=== PATIENT | female | born 1980 | race Two or more races ===

== ENCOUNTER 2020-10-13 07:03 | Outpatient (REF) | payer OTHER, MEDICAID, SELFPAY | END 2020-10-13 07:04 | disposition home or self-care (01) | LOC: HO.LAB 07:03 | PROVIDERS: Visit Provider Internal Medicine | DX: Z20.828 Contact with and (suspected) exposure to other viral communicable diseases (principal) | CPT/HCPCS: C9803; U0003 ==

== ENCOUNTER 2021-02-06 13:50 | Outpatient (REF) | payer OTHER, MEDICAID, SELFPAY ==
--- NOTE | ~2021-02-06 | XR_ITS ---
EXAMINATION: XR LUMBOSACRAL SPINE CLINICAL INFORMATION: Back pain COMPARISON: None TECHNIQUE: Three views of the lumbosacral spine. FINDINGS: Bone alignment is normal. No fracture or dislocation is seen. There is disc space narrowing at L4-L5 and L5-S1. There is lower lumbar spine facet arthritis. XR/XR lumbar spine 2-3V IMPRESSION: Lower lumbar spine degenerative disc disease and facet arthritis.
== END 2021-02-06 13:51 | disposition home or self-care (01) ==
LOC: HO.XRAY 13:50
PROVIDERS: PCP Internal Medicine; Visit Provider Internal Medicine
DX: M54.9 Dorsalgia, unspecified (principal)
CPT/HCPCS: 72100

== ENCOUNTER → 2021-04-03 12:44 | Outpatient (BNVA) | payer OTHER, MEDICAID, SELFPAY | PROVIDERS: PCP Internal Medicine; Visit Provider Surgery | DX: Z01.818 Encounter for other preprocedural examination (principal); R06.02 Shortness of breath; E66.9 Obesity, unspecified; E66.01 Morbid (severe) obesity due to excess calories; K91.2 Postsurgical malabsorption, not elsewhere classified; Z90.3 Acquired absence of stomach [part of] ==

== ENCOUNTER 2021-04-06 06:58 | Outpatient (REF) | payer OTHER, MEDICAID, SELFPAY ==
--- NOTE | ~2021-04-06 | XR_ITS ---
EXAMINATION: XR CHEST 2 VIEWS CLINICAL INFORMATION: Shortness of breath. COMPARISON: Chest radiographs dated 09/01/2008. TECHNIQUE: Frontal and lateral views of the chest were obtained. FINDINGS: The heart, great vessels, pulmonary vasculature and mediastinum are normal. The lungs show no focal infiltrate, effusion or pneumothorax. There is no acute osseous abnormality. There are right upper quadrant surgical clips. XR/XR chest 2V IMPRESSION: No active cardiopulmonary disease.
--- NOTE | 2021-04-06 07:35 | ECG_ITS ---
Test Reason : R06.02 Blood Pressure : / mmHG Vent. Rate : 073 BPM Atrial Rate : 073 BPM P-R Int : 168 ms QRS Dur : 094 ms QT Int : 402 ms P-R-T Axes : 047 011 029 degrees QTc Int : 442 ms Normal sinus rhythm Normal ECG No previous ECGs available Referred By: Callie Ritchie Electronically Signed By:CIARA BUCKLEY
[2021-04-06 07:42] LABS: MANUAL DIFF FLAG NO
[2021-04-06 07:48] LABS: Basophils Percent Auto 0.5 % (0-2); Eosinophils Absolute Auto 0.4 X10*3/uL (0.0-0.4); Eosinophils Percent Auto 5.4 % (0-4); Hematocrit 36.9 % (37-47); Hemoglobin 12.4 g/dl (12.0-16.0); Imm Gran Abs Auto 0.03 X10*3/uL (0.00-0.03); Imm Gran Pct Auto 0.4 % (0.0-0.4); Lymphocytes Absolute Auto 1.9 X10*3/uL (1.2-4.9); Lymphocytes Percent Auto 23.6 % (20-40); Mean Corpuscular HGB Conc 33.6 g/dl (31.0-35.0); Mean Corpuscular Hemoglobin 27.6 pg (27.0-33.0); Mean Platelet Volume 10.4 fL (9.4-12.3); Monocytes Absolute Auto 0.5 X10*3/uL (0.1-1.2); Monocytes Percent Auto 6.3 % (2-11); Neutrophils Absolute Auto 5.1 X10*3/uL (2.0-8.3); Neutrophils Percent Auto 63.8 % (45-73); Platelet Count 255 X10*3/uL (160-400); Red Cell Distribution Width 12.7 % (11.0-16.0)
[2021-04-06 07:53] LABS: Estimated Average Glucose 105 mg/dL; Hemoglobin A1c % 5.3 %
[2021-04-06 08:05] LABS: Alanine Aminotransferase 24 U/L (0-31); Albumin Level 4.3 g/dL (3.5-5.0); Alkaline Phosphatase 70 U/L (39-117); Anion Gap 14 (12-20); Aspartate Amino Transferase 16 U/L (5-31); Bilirubin Total 0.4 mg/dL (0.0-1.0); Blood Urea Nitrogen 20 mg/dL (9-16); C Reactive Protein 1.37 mg/dL (< or = 0.50); Calcium 9.3 mg/dL (8.4-10.2); Carbon Dioxide 25 mmol/L (22-29); Chloride 104 mmol/L (96-108); Cholesterol 169 mg/dL; Estimated Glomerular Filt Rate > 60; Glucose Fasting 107 mg/dL (60-99); HDL Cholesterol 38 mg/dL; Iron 50 mcg/dL (30-160); LDL Cholesterol Calculated 110 mg/dl; Percent Iron Saturation 17 % (15-50); Potassium 4.2 mmol/L (3.3-5.1); Sodium 139 mmol/L (135-145); Total Iron Binding Capacity 301 mcg/dL (228-428); Total Protein 7.1 g/dL (6.5-8.0); Triglycerides 109 mg/dL; Unsaturated Iron Binding 251 ug/dL
[2021-04-06 08:30] LABS: Thyroid Stimulating Hormone 0.71 uIU/mL (0.32-4.0); Vitamin D 25-OH Total 73.8 ng/mL (>30)
[2021-04-06 09:36] LABS: Vitamin B12 503 pg/mL (200-900)
[2021-04-07 14:17] LABS: H Pylori Breath Test NOT DETECTED (NOT DETECTED)
[2021-04-10 13:33] LABS: Calcium (PTHI) 9.4 mg/dL (8.6-10.2); PTHI 27 pg/mL (14-64)
[2021-04-10 20:47] LABS: Zinc 70 mcg/dL (60-130)
[2021-04-11 16:07] LABS: Vitamin B1 20 nmol/L (8-30)
[2021-04-11 16:31] LABS: Vitamin A 43 mcg/dL (38-98)
== END 2021-04-06 06:59 | disposition home or self-care (01) ==
LOC: HO.LAB 06:58
PROVIDERS: PCP Internal Medicine; Visit Provider Surgery
DX: Z01.818 Encounter for other preprocedural examination (principal); R06.02 Shortness of breath; K91.2 Postsurgical malabsorption, not elsewhere classified; Z90.3 Acquired absence of stomach [part of]
CPT/HCPCS: 36415; 71046; 80053; 80061; 82306; 82607; 83013; 83036; 83540; 83970; 84425; 84443; 84590; 84630; 85025; 86140; 93005

== ENCOUNTER → 2021-04-20 08:19 | Outpatient (BNVA) | payer OTHER, MEDICAID, SELFPAY | PROVIDERS: PCP Internal Medicine; Visit Provider Physician Assistant ==

== ENCOUNTER → 2021-05-18 15:34 | Outpatient (BNVA) | payer OTHER, MEDICAID, SELFPAY | PROVIDERS: PCP Internal Medicine; Referring Provider Internal Medicine; Visit Provider Surgery ==

== ENCOUNTER → 2021-06-15 12:35 | Outpatient (BNVA) | payer OTHER, MEDICAID, SELFPAY | PROVIDERS: PCP Internal Medicine; Visit Provider Surgery ==

== ENCOUNTER → 2021-06-29 08:24 | Outpatient (BNVA) | payer OTHER, MEDICAID, SELFPAY | PROVIDERS: PCP Internal Medicine; Visit Provider Dietitian, Registered | DX: E66.01 Morbid (severe) obesity due to excess calories (principal); Z71.3 Dietary counseling and surveillance | CPT/HCPCS: 97802 ==

== ENCOUNTER → 2021-07-06 07:56 | Outpatient (BNVA) | payer OTHER, MEDICAID, SELFPAY | PROVIDERS: PCP Internal Medicine; Visit Provider Physician Assistant ==

== ENCOUNTER → 2021-07-20 13:20 | Outpatient (BNVA) | payer OTHER, MEDICAID, SELFPAY | PROVIDERS: PCP Internal Medicine; Visit Provider Physician Assistant ==

== ENCOUNTER 2021-07-26 08:36 | Outpatient (REF) | payer OTHER, MEDICAID, SELFPAY ==
--- NOTE | 2021-07-26 10:22 | ECG_ITS ---
Test Reason : SOB Blood Pressure : / mmHG Vent. Rate : 059 BPM Atrial Rate : 059 BPM P-R Int : 176 ms QRS Dur : 094 ms QT Int : 434 ms P-R-T Axes : 046 016 027 degrees QTc Int : 429 ms Sinus bradycardia with sinus arrhythmia Otherwise normal ECG When compared with ECG of 06-APR-2021 07:44, No significant change was found Referred By: Callie Ritchie Electronically Signed By:SARI CLEMENTE
[2021-07-26 11:00] LABS: Alanine Aminotransferase 17 U/L (0-31); Albumin Level 4.3 g/dL (3.5-5.0); Alkaline Phosphatase 62 U/L (39-117); Anion Gap 8 (12-20); Aspartate Amino Transferase 14 U/L (5-31); Bilirubin Total 0.7 mg/dL (0.0-1.0); Blood Urea Nitrogen 14 mg/dL (9-16); Calcium 9.2 mg/dL (8.4-10.2); Carbon Dioxide 27 mmol/L (22-29); Chloride 107 mmol/L (96-108); Cholesterol 152 mg/dL; Estimated Glomerular Filt Rate > 60; Glucose Fasting 94 mg/dL (60-99); HDL Cholesterol 38 mg/dL; LDL Cholesterol Calculated 99 mg/dl; Potassium 4.1 mmol/L (3.3-5.1); Sodium 138 mmol/L (135-145); Total Protein 7.1 g/dL (6.5-8.0); Triglycerides 77 mg/dL
[2021-07-26 11:19] LABS: Thyroid Stimulating Hormone 0.62 uIU/mL (0.32-4.0)
== END 2021-07-26 08:37 | disposition home or self-care (01) ==
LOC: HO.LAB 08:36
PROVIDERS: Absent Provider Internal Medicine; PCP Internal Medicine; Visit Provider Surgery
DX: E66.01 Morbid (severe) obesity due to excess calories (principal); Z68.41 Body mass index [BMI] 40.0-44.9, adult; E11.9 Type 2 diabetes mellitus without complications; E03.9 Hypothyroidism, unspecified; R06.02 Shortness of breath
CPT/HCPCS: 36415; 80053; 80061; 84443; 93005

== ENCOUNTER 2021-08-01 06:10 | Inpatient (IN) | payer OTHER, MEDICAID, SELFPAY ==
[2021-07-24 10:55] VITALS: BMI 40.4
[2021-07-26 10:29] LABS: MANUAL DIFF FLAG NO
[2021-07-26 10:38] LABS: INTERNATIONAL NORM RATIO 1.1 (0.9-1.1); Prothrombin Time 12.6 SEC (9.9-13.0)
[2021-07-26 10:39] LABS: Basophils Percent Auto 0.5 % (0-2); Eosinophils Absolute Auto 0.1 X10*3/uL (0.0-0.4); Hematocrit 36.3 % (37-47); Imm Gran Abs Auto 0.03 X10*3/uL (0.00-0.03); Imm Gran Pct Auto 0.5 % (0.0-0.4); Lymphocytes Absolute Auto 1.9 X10*3/uL (1.2-4.9); Lymphocytes Percent Auto 28.9 % (20-40); Mean Corpuscular HGB Conc 33.1 g/dl (31.0-35.0); Mean Corpuscular Hemoglobin 27.4 pg (27.0-33.0); Mean Corpuscular Volume 82.9 fL (80-98); Mean Platelet Volume 10.2 fL (9.4-12.3); Monocytes Absolute Auto 0.4 X10*3/uL (0.1-1.2); Monocytes Percent Auto 6.7 % (2-11); Neutrophils Percent Auto 61.4 % (45-73); Platelet Count 253 X10*3/uL (160-400); Red Blood Count 4.38 X10*6/uL (4.20-5.50); Red Cell Distribution Width 12.8 % (11.0-16.0); White Blood Count 6.6 X10*3/uL (4.8-10.8)
[2021-07-26 10:41] LABS: Partial Thromboplastin Time 37.8 SEC (24.1-38.0)
[2021-07-26 10:50] LABS: Albumin Level 4.3 g/dL (3.5-5.0); Anion Gap 11 (12-20); Blood Urea Nitrogen 14 mg/dL (9-16); Calcium 9.3 mg/dL (8.4-10.2); Carbon Dioxide 27 mmol/L (22-29); Chloride 106 mmol/L (96-108); Creatinine Clr Calc Pharmacy 117.5; Estimated Glomerular Filt Rate > 60; Glucose Random 95 mg/dL (60-115); Potassium 4.3 mmol/L (3.3-5.1); Sodium 140 mmol/L (135-145)
[2021-07-26 11:01] LABS: UPreg QC Valid YES; Urine Pregnancy NEGATIVE (NEGATIVE)
[2021-07-26 11:04] LABS: Appearance Urine CLEAR; Color Urine YELLOW; Glucose Urine UA NEG (NEG); Leukocyte Esterase Urine NEG (NEG); Nitrite Urine NEG (NEG); UACC Culture Trigger NO; Urine Blood 1+ (NEG); Urine Ketones NEG (NEG); Urine Protein NEG (NEG-TRACE)
[2021-07-26 11:26] LABS: Amorphous Sediment Urine 1+ /LPF; Mucus Urine 2+ /LPF; RBC Urine 0-2 /HPF (0); Squamous Epithelial Cell Urine 2+ /LPF; WBC Urine 0-2 /HPF (0-4)
--- NOTE | 2021-07-31 08:50 | HO.ANESPROP2 ---
Documented by User: Donya Mcfadden NP 07/31/21 08:51 [facility] Active Problems Active Problems: All Active Problems (Updated 07/24/21 @ 10:55 by Nuria Dennis RN) Morbid obesity due to excess calories (Acute) BMI 40.0-44.9, adult (Acute) Physical exam (Acute) Preoperative examination (Acute) Shortness of breath (Acute) Preop exam for internal medicine (Acute) Adjustment disorder, unspecified (Acute) Past Medical History Medical History Back pain COVID-19 vaccine series completed Degenerative disc disease, lumbar History of COVID-19 Family History Family History Father No problems noted. Mother No problems noted. Sister No problems noted. Son No problems noted. Son No problems noted. Son No problems noted. Surgical History Surgical History H/O tubal ligation History of cholecystectomy History of tonsillectomy Hx of cervical polypectomy Social History Social History Housing: Apartment Are you a primary attending ambulatory care to a significant other at home: Yes (children) Do you presently have visiting nurse or other home services: No Alcohol intake: current Alcohol intake frequency: does not drink Patient Tobacco Use Status: Never used Tobacco Second Hand Smoke Exposure: No Use of substances other than those prescribed or required for medical reasons: No Have you been hit, kicked, punched, or otherwise hurt by someone within the past year? If so, by whom?: No Are you DNR?: No Advance Directives: No Advance Directives Information Provided: No Advance Directives on File: No Recently lost weight without trying: No Eating poorly because of decreased appetite: No Nutrition Risks: No Nutritional Risk Patient : No FDLMP: 07/19/21 : No Poor oral hygiene: No service: No Current occupational status: employed Meds Allergies Allergy/AdvReac Type Severity Reaction Status Date / Time Seasonal Allergies Allergy Intermediate red eye, Verified 07/26/21 08:54 itching eye, watery eyes, apple [Apple] Allergy Mild THROAT Verified 07/26/21 08:54 ITCHING stephens Allergy Mild THROAT Verified 07/26/21 08:54 ITCHING pear [Pear] Allergy Mild THROAT Verified 07/26/21 08:54 ITCHING Exam Exam Date and Time: July 31, 2021 0850 Height,Weight and Vital Signs: Height 5 ft 7 in Weight 117.027 kg Pertinent Lab Results Pertinent Lab Results: Laboratory Tests 07/26/21 07/26/21 07/26/21 10:09 10:09 10:09 WBC 6.6 RBC 4.38 Hgb 12.0 Hct 36.3 L MCV 82.9 MCH 27.4 MCHC 33.1 RDW 12.8 Plt Count 253 MPV 10.2 Immature Gran % (Auto) 0.5 H Neut % (Auto) 61.4 Lymph % (Auto) 28.9 Mcculloch % (Auto) 6.7 Eos % (Auto) 2.0 Baso % (Auto) 0.5 Lymph # (Auto) 1.9 Mcculloch # (Auto) 0.4 Eos # (Auto) 0.1 Baso # (Auto) 0.0 Abs Immat Gran (auto) 0.03 Absolute Neuts (auto) 4.0 Absolute Nucleated RBC 0.000 Nucleated RBC % (auto) 0.0 PT 12.6 INR 1.1 APTT 37.8 Sodium Potassium Chloride Carbon Dioxide Anion Gap BUN Creatinine Estim Creat Clear Calc Estimated GFR Random Glucose Calcium Albumin Urine Color YELLOW Urine Appearance CLEAR Urine pH 6.0 Ur Specific Roosevelt 1.020 Urine Protein NEG Urine Glucose (UA) NEG Urine Ketones NEG Urine Blood 1+ H Urine Nitrite NEG Ur Leukocyte Esterase NEG Urine RBC 0-2 Urine WBC 0-2 Ur Squamous Epith Cells 2+ Amorphous Sediment 1+ Urine Bacteria NONE Urine Mucus 2+ Urine Test Blood Type Antibody Screen 07/26/21 07/26/21 07/26/21 10:09 10:09 10:09 WBC RBC Hgb Hct MCV MCH MCHC RDW Plt Count MPV Immature Gran % (Auto) Neut % (Auto) Lymph % (Auto) Mcculloch % (Auto) Eos % (Auto) Baso % (Auto) Lymph # (Auto) Mcculloch # (Auto) Eos # (Auto) Baso # (Auto) Abs Immat Gran (auto) Absolute Neuts (auto) Absolute Nucleated RBC Nucleated RBC % (auto) PT INR APTT Sodium 140 Potassium 4.3 Chloride 106 Carbon Dioxide 27 Anion Gap 11 L BUN 14 Creatinine 0.85 Estim Creat Clear Calc 117.5 Estimated GFR > 60 Random Glucose 95 Calcium 9.3 Albumin 4.3 Urine Color Urine Appearance Urine pH Ur Specific Roosevelt Urine Protein Urine Glucose (UA) Urine Ketones Urine Blood Urine Nitrite Ur Leukocyte Esterase Urine RBC Urine WBC Ur Squamous Epith Cells Amorphous Sediment Urine Bacteria Urine Mucus Urine Test NEGATIVE Blood Type O Positive Antibody Screen NEGATIVE Narrative Narrative: EKG 07/2021 Vent. Rate : 059 BPM ? ? Atrial Rate : 059 BPM ?? P-R Int : 176 ms? QRS Dur : 094 ms ? ? QT Int : 434 ms ? ? ? P-R-T Axes : 046 016 027 degrees ?? QTc Int : 429 ms ? Sinus bradycardia with sinus arrhythmia Otherwise normal ECG When compared with ECG of 06-APR-2021 07:44, No significant change was found Assessment and Plan Assessment Anesthesia Assessment: Chart Reviewed Documented by User: Luis Carroll MD 08/01/21 06:59 [facility] Past Medical History Medical History Back pain COVID-19 vaccine series completed Degenerative disc disease, lumbar History of COVID-19 Family History Family History Father No problems noted. Mother No problems noted. Sister No problems noted. Son No problems noted. Son No problems noted. Son No problems noted. Family history of problems with anesthesia: No Surgical History Surgical History H/O tubal ligation History of cholecystectomy History of tonsillectomy Hx of cervical polypectomy History of Problems with Anesthesia: No Social History Social History Housing: Apartment Are you a primary attending ambulatory care to a significant other at home: Yes (children) Do you presently have visiting nurse or other home services: No Alcohol intake: current Alcohol intake frequency: does not drink Patient Tobacco Use Status: Never used Tobacco Second Hand Smoke Exposure: No Use of substances other than those prescribed or required for medical reasons: No Have you been hit, kicked, punched, or otherwise hurt by someone within the past year? If so, by whom?: No Are you DNR?: No Advance Directives: No Advance Directives Information Provided: No Advance Directives on File: No Recently lost weight without trying: No Eating poorly because of decreased appetite: No Nutrition Risks: No Nutritional Risk Patient : No FDLMP: 07/19/21 : No Poor oral hygiene: No service: No Current occupational status: employed Meds Allergies Allergy/AdvReac Type Severity Reaction Status Date / Time Seasonal Allergies Allergy Intermediate red eye, Verified 07/26/21 08:54 itching eye, watery eyes, apple [Apple] Allergy Mild THROAT Verified 07/26/21 08:54 ITCHING stephens Allergy Mild THROAT Verified 07/26/21 08:54 ITCHING pear [Pear] Allergy Mild THROAT Verified 07/26/21 08:54 ITCHING Exam Airway Mallampati Class: III TM Dist: >3cm Neck ROM: Full Loose/Missing/Broken Teeth: No Heart: [id number] Lungs: cta b/l Assessment and Plan Assessment Anesthesia Assessment: Anesthesia Plan Discussed Final Anesthetic Review Family History of Problems with Anesthesia: No History of Problems with Anesthesia: No NPO: Yes ASA Class: II Final Preanesthetic Review: No Changes in Pt Med Stat, Meds/Allgs Chart Reviewed, Consent Obtained/Reviewed and Anes Risks/Benef Reviewed Patient Risk: Intermediate Procedure Risk: Intermediate Assessment/Block/Sedation in SS: Assess/Block/Sedation-SS Anesthetic Plan Anesthetic Plan: GA and Agree w/ Assess. and Plan Disposition: Standard PACU
--- NOTE | 2021-07-31 16:32 | MHC.SHP ---
Pre-Procedural Eval Section A Date of Service: 07/31/21 Section B Chief Complaint: Morbid Severe Obesity Allergies: Allergies Allergy/AdvReac Type Severity Reaction Status Date / Time Seasonal Allergies Allergy Intermediate red eye, Verified 07/26/21 08:54 itching eye, watery eyes, apple [Apple] Allergy Mild THROAT Verified 07/26/21 08:54 ITCHING stephens Allergy Mild THROAT Verified 07/26/21 08:54 ITCHING pear [Pear] Allergy Mild THROAT Verified 07/26/21 08:54 ITCHING Plan I have reviewed the history and physical and performed a pertinent physical examination on my patient. No changes have occurred unless specified.
[2021-08-01] VITALS (14 sets, daily range): BP systolic 102–129; BP diastolic 44–63; PULSE 61–83; RESP 14–19; TEMP 36.2–36.9; O2SAT 98–100
[2021-08-01] MEDS: Lactated Ringers 1,000 ML 100 ML IVCONT ×3 (07:02→19:50)
[2021-08-01 07:13] LABS: COVID-19 Test Negative (Negative); IDNOW Serial# 9DD0AD1C
--- NOTE | 2021-08-01 08:00 | P.BOP_ITS ---
Brief Operative Note Date of Service: 08/01/21 Pre-op diagnosis: Morbid obesity, bmi 40.1 Post-op diagnosis: other (same and haital hernia) Procedure: laparoscopic sleeve gastrectomy, hiatal hernia repair, VICKIE block, and intraoperative endoscopy Surgeon: Callie Ritchie MD Anesthesia: GETA Was an Allergy And Immunology Chief used for this Procedure?: No Estimated blood loss (mL): 10 Pathology: other (partial gastrectomy) Condition: stable Disposition: PACU
--- NOTE | 2021-08-01 08:02 | P.PNGS_ITS ---
Subjective Subjective Date of Service: 08/02/21 Interval history: This is a 40-year-old lady on postoperative day 1. Status post laparoscopic sleeve gastrectomy and hiatal hernia repair doing well. Patient is tolerating stage II diet without difficulty. She denies any nausea vomiting. S he has been up and ambulating and using incentive spirometer. Vital signs and blood work are within normal range for postoperative day 1. Physical Exam Vital Signs: Vital Signs: Last Vital Signs Temp 98.3 F 08/01/21 06:30 Pulse 70 08/01/21 06:30 Resp 16 08/01/21 06:30 BP 102/44 L 08/01/21 06:30 Pulse Ox 98 08/01/21 06:30 Body Mass Index 40.4 Const: General: cooperative, comfortable and no acute distress GI: Other: Abdomen is soft nondistended mild appropriate incisional tenderness. Incisions are clean dry intact with Dermabond in place. There is no erythema or drainage or ecchymosis. Extrem: Other: Bilateral lower extremities are warm well-perfused throughout without edema or tenderness to palpation Procedures Date of Service Date of Service: 08/02/21 Progress Note: A&P Assessment and plan (1) Status post laparoscopic sleeve gastrectomy: Status: Acute Assessment and Plan: This is a 40-year-old lady on postoperative day 1. Status post laparoscopic sleeve gastrectomy and hiatal hernia repair doing well. I will advance her to a stage III diet and once she is tolerating diet she will be discharged home to follow up with me again as an outpatient in 2 weeks time frame. (2) History of repair of hiatal hernia: Status: Acute (3) Morbid obesity due to excess calories: Status: Acute (4) BMI 40.0-44.9, adult: Status: Acute Fall Risk Details Current Medications: Current Medications Acetaminophen (Acetaminophen 325 Mg Tablet) 650 mg PO ONCE PRN PRN Reason: Pain, Mild (Pain Scale 1-3) Fentanyl (Fentanyl Citrate/Pf 100 Mcg/2 Ml Vial) 50 mcg IVPUSH Q5M PRN; Protocol PRN Reason: Pain, Moderate (Pain Scale 4-6 Hydromorphone HCl (Hydromorphone Hcl 0.5 Mg/0.5 Ml Syringe) 0.5 mg IVPUSH Q5M PRN; Protocol PRN Reason: Pain, Severe (Pain Scale 7-10) Lactated Ringer's (Lr) 1,000 mls @ 100 mls/hr IVCONT .Q10H ABHI Last Admin: 08/01/21 07:02 Dose: 100 mls/hr Documented by: Promethazine HCl 6.25 mg/ (Sodium Chloride) 50.25 mls @ 201 mls/hr IV ONCE PRN PRN Reason: Nausea and Vomiting Ondansetron HCl (Ondansetron Hcl 4 Mg/2 Ml Vial) 4 mg IVPUSH ONCE PRN PRN Reason: Nausea and Vomiting Oxycodone HCl (Oxycodone Hcl Immed Release 5 Mg Tablet) 10 mg PO ONCE PRN PRN Reason: Pain, Severe (Pain Scale 7-10) Time Spent With Patient Time: Total time spent is greater than 50% in coordination of care (as documented) at patient's floor/unit and/or counseling patient: Time with patient: less than 15 minutes Quality Stroke Does the patient have a stroke diagnosis?: No VTE Prior VTE?: No VTE Risk Level:: Surgical - moderate VTE Device Contraindication: N/A - Device Ordered VTE Drug Contraindication: Treatment Not Indicated
--- NOTE | 2021-08-01 08:02 | P.OP_ITS ---
Operative Note Operative Note Date of Service: 08/01/21 Narrative: Patient was brought into the operating room and placed on the operating room table in the supine position. General anesthesia was induced. Normal DVT prophylaxis was instituted and the patient received 2 grams of cefotetan preoperatively. The abdomen was then prepped and draped in the normal sterile fashion. A safety time-out was performed. A mixture of 1% lidocaine with epinephrine and ?% Marcaine plain was used to an esthetize the planned incision site in the left upper quadrant. A #11 scalpel was used to make a 5 mm left upper quadrant transverse incision through which a veress needle was placed. Three pops were heard going through the fascia. A saline drop test was used to confirm that the veress needle was intraabdominal. An optiview technique was then used to place a 5mm port in the left upper quadrant. A 5 mm 30 degree laproscope was then placed through this port and the abdominal cavity was surveyed and was normal. The patient was placed in reverse Trendelenburg positioning. A mis liver retractor was then placed in the subxyphoid position and it was used to hold up the left lobe of the liver to the abdominal wall. This was secured to the bed using the liver retractor orozco. A VICKIE block was then performed for pain control on the right side of the abdomen. A 5 mm port was placed in the right upper quadrant near the falciform ligament. A 12 mm port was then placed in the mid epigastrium. One additional 5 mm port was placed in the left upper quadrant just to the left of the placement of the first port. I then performed a VICKIE block on the left side of the abdomen. I then removed the epigastric fat pad; there was a small anterior hiatal hernia noted. I reapproximated the left and right crura with a total of 2 stitches of 2-0 ethibond and a laparoscopic knot pusher. There was no residual hiatal hernia. I then opened up the angle of His. We then gained entry into the lesser sac about 4-5 cm from the pylorus. I had anesthesia place a 34 Romanian orogastric tube into the distal antrum to use as a sizing tool for gastric pouch size. I divided the short gastric vessels up to the angle of His. We then started the creation of the gastric pouch by firing a 60 mm purple load endostapler up the stomach about 4-5 cm from the pylorus. We completed the creation of the gastric pouch using a total of 4 firings of a 60 mm and 1 firing of a 45 mm purple load stapler. We had anesthesia remove the orogastric tube, then we clamped across the distal antrum using a fired 60 mm endostapler. We flattened the patient and then instilled normal saline surrounding the newly created staple line. I then performed an on-table endoscopy. I passed the gastroscopy into the posterior oropharynx and down the esophagus evaluating the esophageal mucosa which was normal. There was no evidence of hiatal hernia. I passed the gastroscope into the gastric pouch and insufflated the gastric pouch. There was healthy pink mucosa and no evidence of active bleeding. There was no evidence of leak on laparosco py. I desufflated the gastric pouch and removed the endoscope. I removed the endostapler from the abdomen and suctioned the fluid from the left upper quadrant. I then removed the partial gastrectomy specimen through the epigastric 12 mm port site. I reapproximated the 12 mm port using a 0 maxon suture with a laparoscopic suture passer. I instilled local anesthetic into the fascial closure site and tied the suture down at a pressure of 8-10 mm of Hg. There was no residual fascial defect. We removed the liver retractor and the left upper quadrant 5 mm ports under direct visualization. There was no evidence of any active bleeding. I desufflated the abdomen through the last remaining port and removed the laparoscope and 5 mm port. We reapproximated all incisions with a 4-0 monocryl subcuticular stitch. We cleaned and dried the abdominal skin and applied dermabond skin glue. All count were correct at the end of the case. The patient was awake and in stable condition prior to extubation and transfer to the recovery room.
--- NOTE | 2021-08-01 08:02 | PM.DS ---
DS: Providers Provider Date of Service: 08/01/21 Date of admission: 08/01/21 06:10 Date of discharge: 08/02/21 Primary care physician: Chip Barbour MD Admitting clinician: Callie Ritchie Attending physician on admission: Callie Ritchie Attending physician on discharge: Callie Ritchie Discharging clinician: Callie Ritchie DS: Diagnosis Discharge Diagnosis (1) History of repair of hiatal hernia: Status: Acute (2) Status post laparoscopic sleeve gastrectomy: Status: Acute (3) Morbid obesity due to excess calories: Status: Acute (4) BMI 40.0-44.9, adult: Status: Acute DS: Summary Hospital Course Hospital Course: This is a 40-year-old lady who was admitted through same day admissions on 08/01/2021 and underwent a laparoscopic sleeve gastrectomy and hiatal hernia repair for weight management. Patient did well postoperatively and was sent to the surgical floor overnight. She was started on a stage II bariatric diet which she tolerated well. Patient was out of bed and ambulating and using the incentive spirometer. On postoperative day 1. The patient's vital signs and blood work within normal limits for postoperative day 1. Patient was advanced to a stage III bariatric diet and she tolerated well and was discharged home. Status at Discharge Functional status at discharge: independent ambulation Time Spent with Patient Time attestation: Total time spent providing and/or coordinating discharge services: Discharge coordination time: Less than 30 minutes Quality: Stroke Does the patient have a stroke diagnosis?: No Physical Exam Vital Signs: Vital Signs: Last Vital Signs Temp 98.3 F 08/01/21 06:30 Pulse 70 08/01/21 06:30 Resp 16 08/01/21 06:30 BP 102/44 L 08/01/21 06:30 Pulse Ox 98 08/01/21 06:30 Body Mass Index 40.4 DS: Data Data Completed and Pending Labs on day of discharge: Laboratory Results - last 24 hr 08/01/21 06:12 COVID-19 ([facility]) Negative COVID-19 Clin Com See Note Discharge Plan Discharge Patient Disposition: Home, Self-Care Discharge Diagnosis: Morbid obesity, BMI 40.1, status post sleeve gastrectomy and hiatal hernia repair Referrals: Chip Barbour MD [Primary Care Provider] - 1 Week Discharge Medications: Continued acetaminophen [Tylenol Extra Strength] 500 mg tablet 1,000 mg PO Q6H PRN (Reason: pain) Qty: 30 RF: 1 famotidine [Pepcid AC] 20 mg tablet 20 mg PO DAILY Qty: 30 RF: 1 simethicone [Gas Relief (simethicone)] 80 mg tablet,chewable 80 mg PO TID-QID PRN (Reason: abdominal distention) Qty: 30 RF: 1 ondansetron HCl [Zofran] 4 mg tablet 4 mg PO Q6H PRN (Reason: nausea and vomiting) Qty: 30 RF: 1 docusate sodium [Colace] 100 mg capsule 100 mg PO BID Qty: 30 RF: 1 Discharge Orders: Discharge Order (Routine); Ordered 08/02/21 Ordered By: Callie Ritchie Activity on Discharge: No heavy lifting Stand Alone Forms: Patient Portal Discharge page Activity Restrictions/Additional Instructions: No lifting greater than 5 lbs for the next 4 weeks. No driving within 24 hours of taking narcotic pain medications. If you do not move your bowels in the next 2 days, please take milk of magnesia over the counter or MiraLax. Please follow the post op diet and do not advance your diet until you are seen in the office in about 2 weeks. Please walk around your home every hour or two to prevent blood clots from forming in your legs. You do not need to wake from sleeping to walk. Please sleep in a bed or couch to prevent kinking at the hips and knees. Please take your incentive spirometer (your lung staff development nurse) home with you and use it for the next few days to prevent pneumonias. You may shower, no hot tubs, baths or swimming pools. Please call the office with any questions or concerns such as increasing abdominal pain, fever, chills, shortness of breath, chest pain, leg pain or swelling, or redness or drainage from your incisions. Please stay on stage 3 diet which includes sugar free clear liquids such as ice pops and jello and broth and crystal light. Avoid all carbonation. Please drink 2-3 protein shakes with at least 20-30 grams of protein daily or 2 of the celebrate 4:1 shakes which can be purchased in our office in addition to 1 other protein shake of your choice. celebrate shakes have all of the bariatric vitamins you need if you consume these shakes. If you are drinking other protein shakes, you will need to order the bariatric vitamin Opurity chewable online, or use the celebrate bariatric vitamin and an additional celebrate calcium daily which will provide all the vitamins you need. You may take the bariatric capsule vitamin in about 1 month. Please make sure you are consuming at least 40- 60 ounces of water in addition to your 2-3 protein shakes daily. You do not need to use the medicine cups to drink year shakes or water following discharge. Just drink slowly in order to ensure that she consume all of your liquids for the day. The medicine cups were only to teach you to drink slowly. They are not required at home. Do not hesitate to contact the office with any questions. Care Plan Goals: Achieve BMI of 25 Health Concerns: Morbid obesity Plan of Treatment: Patient is status post sleeve gastrectomy Assessment: Patient is doing well
[2021-08-01] MEDS: ondansetron HCL 4 MG/2 ML VIAL IVPUSH (09:36)
[2021-08-01] MEDS: HYDROmorphone HCl 0.5 MG/0.5 ML SYRINGE IVPUSH ×4 (09:47→21:37)
[2021-08-01] MEDS: Metoclopramide HCl 10 MG/2 ML VIAL IVPUSH (10:11)
[2021-08-01] MEDS: Famotidine/PF 20 MG/2 ML VIAL IVPUSH ×2 (10:12→21:37)
[2021-08-01] MEDS: cefoTEtan disodium 2 GM in 0.9 % Sodium Chloride 50 ML IV (19:41)
[2021-08-02] VITALS: BP 123/58; PULSE 75; RESP 16; TEMP 36.7; O2SAT 97
[2021-08-02 04:00] VITALS: BP 123/59; PULSE 65; RESP 16; TEMP 36.7; O2SAT 98
[2021-08-02 06:05] LABS: Hematocrit 31.9 % (37-47); Hemoglobin 10.4 g/dl (12.0-16.0); Mean Corpuscular HGB Conc 32.6 g/dl (31.0-35.0); Mean Corpuscular Hemoglobin 27.5 pg (27.0-33.0); Mean Corpuscular Volume 84.4 fL (80-98); Mean Platelet Volume 10.8 fL (9.4-12.3); Platelet Count 232 X10*3/uL (160-400); Red Blood Count 3.78 X10*6/uL (4.20-5.50); Red Cell Distribution Width 12.9 % (11.0-16.0); White Blood Count 10.8 X10*3/uL (4.8-10.8)
[2021-08-02] MEDS: Lactated Ringers 1,000 ML 100 ML IVCONT (06:25)
[2021-08-02] MEDS: HYDROmorphone HCl 0.5 MG/0.5 ML SYRINGE IVPUSH (06:48)
[2021-08-02 07:02] LABS: Anion Gap 11 (12-20); Blood Urea Nitrogen 10 mg/dL (9-16); Calcium 8.3 mg/dL (8.4-10.2); Carbon Dioxide 24 mmol/L (22-29); Chloride 106 mmol/L (96-108); Creatinine Clr Calc Pharmacy 120.3; Estimated Glomerular Filt Rate > 60; Glucose Random 90 mg/dL (60-115); Potassium 3.9 mmol/L (3.3-5.1); Sodium 137 mmol/L (135-145)
[2021-08-02 08:00] VITALS: BP 117/58; PULSE 56; RESP 16; TEMP 36.4
[2021-08-02] MEDS: Famotidine/PF 20 MG/2 ML VIAL IVPUSH (08:37)
--- NOTE | 2021-08-02 08:48 | MHC.CM.PN ---
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 D/C PLAN: HOME TODAY SELF CARE W/OUTPT FOLLOW-UP W/SURGEON, PTS MOTHER FOR TRANSPORT. PCP IVETTE MOROCHO HCP: VONDA SIFUENTES [phone]
--- NOTE | 2021-08-02 15:10 | HO.POSTANES ---
Post Anesthesia Evaluation Post Anesthesia Evaluation Vital Signs: Vital Signs Temp Pulse Resp BP Pulse Ox 08/02/21 08:00 97.6 F 56 16 117/58 L 08/02/21 04:00 98.1 F 65 16 123/59 L 98 Anesthesia: General Endotracheal-GETA Mental Status: Awake Pain Control: Satisfactory Nausea/Vomiting: None Hydration: Adequate Anesthesia-Related Issues: No Anes. Related Issues
== END 2021-08-02 10:33 | disposition home or self-care (01) | DRG 403 ==
LOC: HO.SSSA 06:24 → HO.S3 10:50
PROVIDERS: Admitting Provider Surgery; PCP Internal Medicine; Visit Provider Surgery
PROC: 0DB64Z3 Excision of Stomach, Percutaneous Endoscopic Approach, Vertical (ICD-10-PCS; CPT 43845; principal; 2021-08-01 07:30)
DX: E66.01 Morbid (severe) obesity due to excess calories (principal); K44.9 Diaphragmatic hernia without obstruction or gangrene; Z68.41 Body mass index [BMI] 40.0-44.9, adult; Z20.822 Contact with and (suspected) exposure to COVID-19; Z86.16 Personal history of COVID-19; Z79.899 Other long term (current) drug therapy
CPT/HCPCS: 43775; 36415; 80048; 81001; 81003; 81025; 82040; 85025; 85027; 85610; 85730; 86850; 86900; 86901; 87635; 88307; 88342; 99024; C1776; J0131; J1100; J1170; J2250; J2405; J2550; J2765; J3010

== ENCOUNTER → 2021-08-16 08:42 | Outpatient (BNVA) | payer OTHER, MEDICAID, SELFPAY | PROVIDERS: PCP Internal Medicine; Referring Provider Internal Medicine; Visit Provider Surgery ==

== ENCOUNTER → 2021-09-14 08:53 | Outpatient (BNVA) | payer OTHER, MEDICAID, SELFPAY | PROVIDERS: PCP Internal Medicine; Referring Provider Internal Medicine; Visit Provider Physician Assistant Surgical ==

== ENCOUNTER 2021-10-03 08:28 | Outpatient (REF) | payer OTHER, MEDICAID, SELFPAY ==
[2021-10-03 09:44] LABS: MANUAL DIFF FLAG NO
[2021-10-03 10:01] LABS: Basophils Percent Auto 0.4 % (0-2); Eosinophils Absolute Auto 0.1 X10*3/uL (0.0-0.4); Eosinophils Percent Auto 1.7 % (0-4); Hematocrit 37.4 % (37.0-47.0); Hemoglobin 12.4 g/dl (12.0-16.0); Imm Gran Abs Auto 0.02 X10*3/uL (0.00-0.03); Imm Gran Pct Auto 0.3 % (0.0-0.4); Lymphocytes Absolute Auto 1.8 X10*3/uL (1.2-4.9); Lymphocytes Percent Auto 25.1 % (20-40); Mean Corpuscular HGB Conc 33.2 g/dl (31.0-35.0); Mean Corpuscular Hemoglobin 27.6 pg (27.0-33.0); Mean Corpuscular Volume 83.3 fL (80.0-98.0); Mean Platelet Volume 10.5 fL (9.4-12.3); Monocytes Absolute Auto 0.6 X10*3/uL (0.1-1.2); Neutrophils Absolute Auto 4.5 x10*3/uL (2.0-8.3); Neutrophils Percent Auto 64.5 % (45-73); Platelet Count 253 X10*3/uL (160-400); Red Blood Count 4.49 X10*6/uL (4.20-5.50); Red Cell Distribution Width 13.7 % (11.0-16.0)
[2021-10-03 10:45] LABS: Cholesterol 130 mg/dL; HDL Cholesterol 33 mg/dL; LDL Cholesterol Calculated 86 mg/dl; Triglycerides 58 mg/dL
== END 2021-10-03 08:29 | disposition home or self-care (01) ==
LOC: HO.LAB 08:28
PROVIDERS: Absent Provider Internal Medicine; PCP Internal Medicine; Visit Provider Dietitian, Registered
DX: Z00.00 Encounter for general adult medical examination without abnormal findings (principal); E66.9 Obesity, unspecified; Z68.36 Body mass index [BMI] 36.0-36.9, adult; Z71.3 Dietary counseling and surveillance
CPT/HCPCS: 36415; 80061; 85025; 97803

== ENCOUNTER → 2021-10-22 14:33 | Outpatient (BNVA) | payer OTHER, MEDICAID, SELFPAY | PROVIDERS: PCP Internal Medicine; Visit Provider Physician Assistant Surgical ==

== ENCOUNTER → 2021-11-30 07:56 | Outpatient (BNVA) | payer OTHER, MEDICAID, SELFPAY | PROVIDERS: PCP Internal Medicine; Visit Provider Physician Assistant Surgical ==

== ENCOUNTER 2022-02-22 13:43 | Outpatient (REF) | payer OTHER, MEDICAID, SELFPAY ==
[2022-02-22 14:50] LABS: MANUAL DIFF FLAG NO
[2022-02-22 15:13] LABS: Basophils Percent Auto 0.5 % (0-2); Eosinophils Absolute Auto 0.2 X10*3/uL (0.0-0.4); Eosinophils Percent Auto 2.9 % (0-4); Hemoglobin 11.7 g/dl (12.0-16.0); Imm Gran Abs Auto 0.03 X10*3/uL (0.00-0.03); Imm Gran Pct Auto 0.4 % (0.0-0.4); Lymphocytes Percent Auto 27.6 % (20-40); Mean Corpuscular HGB Conc 33.4 g/dl (31.0-35.0); Mean Corpuscular Hemoglobin 28.1 pg (27.0-33.0); Mean Corpuscular Volume 83.9 fL (80.0-98.0); Mean Platelet Volume 10.2 fL (9.4-12.3); Monocytes Absolute Auto 0.5 X10*3/uL (0.1-1.2); Neutrophils Absolute Auto 4.5 x10*3/uL (2.0-8.3); Neutrophils Percent Auto 61.6 % (45-73); Platelet Count 254 X10*3/uL (160-400); Red Blood Count 4.17 X10*6/uL (4.20-5.50); Red Cell Distribution Width 12.7 % (11.0-16.0); White Blood Count 7.3 X10*3/uL (4.8-10.8)
[2022-02-22 15:23] LABS: Estimated Average Glucose 94 mg/dL; Hemoglobin A1C 91.6862 umol/L; Hemoglobin A1c % 4.9 %
[2022-02-22 15:34] LABS: Anion Gap 10 (12-20); Blood Urea Nitrogen 21 mg/dL (9-16); Calcium 9.2 mg/dL (8.4-10.2); Carbon Dioxide 26 mmol/L (22-29); Chloride 108 mmol/L (96-108); Estimated Glomerular Filt Rate > 60; Glucose Random 85 mg/dL (60-115); Iron 41 mcg/dL (30-160); Percent Iron Saturation 15 % (15-50); Sodium 140 mmol/L (135-145); Total Iron Binding Capacity 275 mcg/dL (228-428); Unsaturated Iron Binding 234 ug/dL
[2022-02-22 16:01] LABS: Ferritin 62 ng/mL (10-250); TSH reflex Free T4 0.59 uIU/mL (0.32-4.0); Vitamin D 25-OH Total 73.1 ng/mL (>30)
[2022-02-22 16:07] LABS: Folate 16.9 ng/mL (> or = 4.0); Vitamin B12 1053 pg/mL (200-900)
[2022-02-22 16:31] LABS: Insulin 8 uU/mL (2-29)
[2022-02-25 13:56] LABS: Calcium (PTHI) 9.4 mg/dL (8.6-10.2); PTHI 55 pg/mL (16-77)
[2022-02-26 16:05] LABS: Zinc 53 mcg/dL (60-130)
[2022-02-27 17:56] LABS: Vitamin A 34 mcg/dL (38-98)
[2022-02-28 17:16] LABS: Vitamin B1 24 nmol/L (8-30)
== END 2022-02-22 13:44 | disposition home or self-care (01) ==
LOC: HO.LAB 13:43
PROVIDERS: PCP Internal Medicine; Referring Provider Internal Medicine; Visit Provider Physician Assistant Surgical
DX: E66.9 Obesity, unspecified (principal)
CPT/HCPCS: 36415; 80048; 82306; 82607; 82728; 82746; 83036; 83525; 83540; 83970; 84425; 84443; 84590; 84630; 85025; 86140

== ENCOUNTER → 2022-03-01 08:06 | Outpatient (BNVA) | payer OTHER, MEDICAID, SELFPAY | PROVIDERS: PCP Internal Medicine; Visit Provider Dietitian, Registered | DX: Z13.89 Encounter for screening for other disorder (principal) ==

== ENCOUNTER → 2022-03-05 09:42 | Outpatient (BNVA) | payer OTHER, MEDICAID, SELFPAY | PROVIDERS: PCP Internal Medicine; Visit Provider Dietitian, Registered | DX: E66.9 Obesity, unspecified (principal); Z68.32 Body mass index [BMI] 32.0-32.9, adult | CPT/HCPCS: 97803 ==

== ENCOUNTER 2022-09-20 07:56 | Outpatient (REF) | payer OTHER, MEDICAID, SELFPAY ==
[2022-09-20 08:12] LABS: MANUAL DIFF FLAG NO
[2022-09-20 08:23] LABS: Basophils Percent Auto 0.6 % (0-2); Eosinophils Absolute Auto 0.1 X10*3/uL (0.0-0.4); Eosinophils Percent Auto 1.5 % (0-4); Hematocrit 34.5 % (37.0-47.0); Hemoglobin 11.8 g/dl (12.0-16.0); Imm Gran Abs Auto 0.02 X10*3/uL (0.00-0.03); Imm Gran Pct Auto 0.3 % (0.0-0.4); Lymphocytes Absolute Auto 1.8 X10*3/uL (1.2-4.9); Lymphocytes Percent Auto 25.6 % (20-40); Mean Corpuscular HGB Conc 34.2 g/dl (31.0-35.0); Mean Corpuscular Hemoglobin 28.6 pg (27.0-33.0); Mean Corpuscular Volume 83.7 fL (80.0-98.0); Monocytes Absolute Auto 0.4 X10*3/uL (0.1-1.2); Monocytes Percent Auto 6.1 % (2-11); Neutrophils Absolute Auto 4.5 x10*3/uL (2.0-8.3); Neutrophils Percent Auto 65.9 % (45-73); Platelet Count 215 X10*3/uL (160-400); Red Blood Count 4.12 X10*6/uL (4.20-5.50); Red Cell Distribution Width 12.7 % (11.0-16.0); White Blood Count 6.8 X10*3/uL (4.8-10.8)
[2022-09-20 08:39] LABS: Estimated Average Glucose 97 mg/dL
[2022-09-20 08:56] LABS: Alanine Aminotransferase 18 U/L (0-31); Alkaline Phosphatase 61 U/L (39-117); Anion Gap 14 (12-20); Aspartate Amino Transferase 17 U/L (5-31); Bilirubin Total 0.7 mg/dL (0.0-1.0); Blood Urea Nitrogen 17 mg/dL (9-16); C Reactive Protein 0.77 mg/dL (< or = 0.50); Calcium 9.2 mg/dL (8.4-10.2); Carbon Dioxide 25 mmol/L (22-29); Chloride 104 mmol/L (96-108); Cholesterol 142 mg/dL; Estimated Glomerular Filt Rate > 60; Glucose Random 86 mg/dL (60-115); HDL Cholesterol 42 mg/dL; Iron 96 mcg/dL (30-160); LDL Cholesterol Calculated 87 mg/dl; Percent Iron Saturation 38 % (15-50); Potassium 4.2 mmol/L (3.3-5.1); Sodium 139 mmol/L (135-145); Total Iron Binding Capacity 250 mcg/dL (228-428); Total Protein 6.7 g/dL (6.5-8.0); Triglycerides 68 mg/dL; Unsaturated Iron Binding 154 ug/dL
[2022-09-20 09:26] LABS: Folate 19.8 ng/mL (> or = 4.0); Vitamin B12 1480 pg/mL (200-900)
[2022-09-20 09:30] LABS: Ferritin 55 ng/mL (10-250); Insulin 4 uU/mL (2-29); TSH reflex Free T4 0.69 uIU/mL (0.32-4.0)
[2022-09-20 12:43] LABS: Vitamin D 25-OH Total 93.5 ng/mL (>30)
[2022-09-22 11:27] LABS: Calcium (PTHI) 9.1 mg/dL (8.6-10.2); PTHI 36 pg/mL (16-77)
[2022-09-24 17:55] LABS: Zinc 75 mcg/dL (60-130)
[2022-09-26 15:11] LABS: Vitamin B1 23 nmol/L (8-30)
[2022-09-26 15:21] LABS: Vitamin A 36 mcg/dL (38-98)
== END 2022-09-20 07:57 | disposition home or self-care (01) ==
LOC: HO.LAB 07:56
PROVIDERS: PCP Internal Medicine; Visit Provider Physician Assistant Surgical
DX: Z98.84 Bariatric surgery status (principal)
CPT/HCPCS: 36415; 80053; 80061; 82306; 82607; 82728; 82746; 83036; 83525; 83540; 83970; 84425; 84443; 84590; 84630; 85025; 86140

== ENCOUNTER → 2022-11-18 11:50 | Outpatient (BNVA) | payer OTHER, MEDICAID, SELFPAY | PROVIDERS: PCP Internal Medicine; Visit Provider Physician Assistant Surgical | DX: E66.9 Obesity, unspecified (principal) ==

== ENCOUNTER 2023-01-30 07:32 | Outpatient (REF) | payer OTHER, MEDICAID, SELFPAY ==
[2023-01-30 08:43] LABS: Ferritin 53 ng/mL (10-250); Free T4 (Free Thyroxine) 0.91 ng/dL (0.71-1.85); Thyroid Stimulating Hormone 0.75 uIU/mL (0.32-4.0); Vitamin D 25-OH Total 80.5 ng/mL (>30)
== END 2023-01-30 07:33 | disposition home or self-care (01) ==
LOC: HO.LAB 07:32
PROVIDERS: PCP Internal Medicine; Visit Provider Physician Assistant Medical
DX: K65.9 Peritonitis, unspecified (principal); E66.9 Obesity, unspecified; Z79.899 Other long term (current) drug therapy
CPT/HCPCS: 36415; 82306; 82728; 84439; 84443

== ENCOUNTER 2023-05-12 07:34 | Outpatient (REF) | payer OTHER, SELFPAY ==
[2023-05-16 11:13] LABS: Vitamin B1 17 nmol/L (8-30)
[2023-05-16 19:03] LABS: Vitamin A 42 mcg/dL (38-98)
== END 2023-05-12 07:35 | disposition home or self-care (01) ==
LOC: HO.LAB 07:34
PROVIDERS: PCP Internal Medicine; Visit Provider Physician Assistant Surgical
DX: E66.9 Obesity, unspecified (principal); Z98.84 Bariatric surgery status
CPT/HCPCS: 36415; 80053; 80061; 82306; 82607; 82728; 82746; 83036; 83525; 83540; 83970; 84425; 84443; 84590; 84630; 85025; 86140

== ENCOUNTER → 2023-05-15 07:58 | Outpatient (BNVA) | payer MEDICAID, SELFPAY | PROVIDERS: PCP Internal Medicine; Visit Provider Physician Assistant Surgical | DX: E66.9 Obesity, unspecified (principal); Z98.84 Bariatric surgery status ==

== ENCOUNTER 2023-08-07 09:14 | Outpatient (AMB) | payer OTHER, MEDICAID, SELFPAY ==
--- NOTE | 2023-08-07 09:36 | A.OFFVIS_ITS ---
Intake VS Expanded 08/07/23 09:41 Height 5 ft 7 in Weight 196 lb 12.8 oz BMI 30.8 BP 121/57 L Blood Pressure Location Rt brachial Blood Pressure Position Sitting Respiratory Rate 16 Pulse 67 Pulse Source Pulse Oximeter Temp 98.1 F Temperature Source Temporal Artery Scan Pulse Oximetry 99 Oxygen Delivery Method Room Air Body Fat 74.6 Body Fat Percentage 37.9 Free Fat Mass 122.2 Muscle Mass 116.0 Visceral Mass 8.0 Water Mass 87.4 BMR 1,680 Intake Visit Reasons: (OV) PO LSG 08/01/21 Allergies Seasonal Allergies Allergy (Intermediate, Verified 08/07/23 09:40) red eye, itching eye, watery eyes, apple [Apple] Allergy (Mild, Verified 08/07/23 09:40) THROAT ITCHING stephens Allergy (Mild, Verified 08/07/23 09:40) THROAT ITCHING pear [Pear] Allergy (Mild, Verified 08/07/23 09:40) THROAT ITCHING Medication List - Last Reconciled 08/07/23 by ADILENE Celis calcium citrate 1,000 mg PO DAILY cholecalciferol (vitamin D3) 125 mcg PO DAILY clotrimazole 1% 1 appl topical BID gabapentin 300 mg PO BEDTIME mwshbdajqabu-gpi-wugr-FA-vit K 45 mg iron- 800 mcg-120 mcg (Bariatric Multivitamins) caps PO psyllium husk (Daily Fiber) 0.52 grams PO BEDTIME vitamin A palmitate 10,000 units PO DAILY HPI HPI Comments History of Present Illness Details This?is a?42?yo female who is s/p LSG 08/01/2021. Presents for 2 year post op visit. Weight at last visit on 05/15/2023 was 200 pounds with a BMI of 31.3, weight today is 196.8 pounds, representing a 3.2 pound weight loss with a BMI today of 30.8.? No complaints of nausea, emesis, abdominal pain or reflux, or constipation. Present meal plan includes: adjusted at last visit to help with weight loss Breakfast- Premier shake Lunch- ONE or Fitcrunch bar Snack- bar Dinner- 3oz protein, up to 4oz veg/salad pt reports she was able to follow the plan for about 6 weeks but then stopped, then resumed previous plan- half shake in AM with eggs or yogurt, light lunch , fiber bar in afternoon, meal for dinner All meals last 20 - 30 minutes and does not drink and eat at the same time. Exercise routine includes: 5-6x week HIIT training, strength traini ng, walking- 40+ min, mittal about 500 calories works out in evening after work Pt reports ongoing problems of excess skin of abdomen, causing itchy painful rashes in skin fold. She also notices that moisture collects in the skin fold.? Very uncomfortable during exercise, impedes movement and unable to exercise to her full capacity. Has tried clotrimazole ointment to help rashes but this has not resolved the issue. Did the patient ever have any of these conditions and are they resolved or still being treated? GERD: occasionally takes Tums MADYSON:? never DM:? never HTN:? never Hyperlipidemia:?never Post op complications:? none PFSH Medical History Back pain COVID-19 vaccine series completed Degenerative disc disease, lumbar History of COVID-19 Surgical History H/O tubal ligation History of cholecystectomy History of repair of hiatal hernia History of tonsillectomy Hx of cervical polypectomy Status post laparoscopic sleeve gastrectomy Family History Father No problems noted. Mother No problems noted. Sister No problems noted. Son No problems noted. Son No problems noted. Son No problems noted. 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 other at home: Yes (children) Do you presently have visiting nurse or other home services: No Alcohol intake: current Alcohol intake frequency: does not drink Patient Tobacco Use Status: Never used Tobacco e-Cigarette/Vaping Use: Never Used Second Hand Smoke Exposure: No service: No Current occupational status: employed Cognitive needs: No Hearing needs: No Vision needs: No Physical Exam Const General: cooperative, comfortable and no acute distress Orientation/consciousness: patient oriented x3 GI Other: soft, nontender, nondistended, incisions well healed, no hernia, no masses Neuro General: patient oriented x3 Assessment & Plan Assessment & Plan (1) Excess skin: Code(s): L98.7 - Excessive and redundant skin and subcutaneous tissue (2) Obesity: Code(s): E66.9 - Obesity, unspecified (3) Status post laparoscopic sleeve gastrectomy: Code(s): Z98.84 - Bariatric surgery status Plan Labs just done in May. Pt would like to continue losing weight but feels frustrated by slow pace, and would like to expand her options for a meal plan that would help with weight loss but be less strict than the one I previously gave her. Suggested meeting with RD for meal plan options to which pt was agreeable. Continue clotrimazole ointment for rashes of excess skin. Pt would eventually benefit from definitive treatment of panniculectomy once she achieves BMI closer to 25. Patient is obese and is not considered stable at this time. I spent a total of 30 minutes reviewing/updating records, examining the patient and counseling the patient on weight management as detailed above. Coding Level of Care Code Est Pt Level 4 (18407) Diagnoses Excess skin L98.7 Obesity E66.9 Status post laparoscopic sleeve gastrectomy Z98.84
[2023-08-07 09:41] VITALS: BP 121/57; PULSE 67; RESP 16; TEMP 36.7; O2SAT 99; BMI 30.8
== END 2023-08-07 10:03 | disposition home or self-care (01) ==
PROVIDERS: PCP Internal Medicine; Visit Provider Physician Assistant Surgical
DX: L98.7 Excessive and redundant skin and subcutaneous tissue (principal); E66.9 Obesity, unspecified; Z98.84 Bariatric surgery status
CPT/HCPCS: 99214

== ENCOUNTER → 2023-08-07 09:14 | Outpatient (BNVA) | payer OTHER, MEDICAID, SELFPAY | PROVIDERS: PCP Internal Medicine; Visit Provider Physician Assistant Surgical ==

== ENCOUNTER → 2023-09-02 09:18 | Outpatient (BNVA) | payer OTHER, MEDICAID, SELFPAY | PROVIDERS: PCP Internal Medicine; Visit Provider Dietitian, Registered | DX: E66.9 Obesity, unspecified (principal); Z98.84 Bariatric surgery status; Z71.3 Dietary counseling and surveillance | CPT/HCPCS: 97803 ==

== ENCOUNTER 2023-10-09 09:24 | Outpatient (AMB) | payer OTHER, MEDICAID, SELFPAY ==
--- NOTE | 2023-10-09 09:33 | MHC.OFFVISWM ---
Intake VS Expanded 10/09/23 09:40 BP 119/58 L Blood Pressure Location Rt brachial Blood Pressure Position Sitting Pulse 70 Pulse Source Pulse Oximeter Temp 98.6 F Temperature Source Temporal Artery Scan Pulse Oximetry 99 Oxygen Delivery Method Room Air Height 5 ft 7 in Weight 200 lb 12.8 oz BMI 31.4 Body Fat % 36.2 Body Fat Mass 72.6 Fat Free Mass 128.0 Visceral Fat Rating 7.0 Body Water % 45.6 Body Water Mass 91.4 Muscle Mass/Score 121.6 Basal Metabolic Rate/Score 1,751 Intake Visit Reasons: (OV) PO LSG 08/01/21 Allergies Seasonal Allergies Allergy (Intermediate, Verified 10/09/23 09:35) red eye, itching eye, watery eyes, apple [Apple] Allergy (Mild, Verified 10/09/23 09:35) THROAT ITCHING stephens Allergy (Mild, Verified 10/09/23 09:35) THROAT ITCHING pear [Pear] Allergy (Mild, Verified 10/09/23 09:35) THROAT ITCHING Medication List - Last Reconciled 10/09/23 by ADILENE Celis calcium citrate 1,000 mg PO DAILY cholecalciferol (vitamin D3) 125 mcg PO DAILY clotrimazole 1% 1 appl topical BID gabapentin 300 mg PO BEDTIME deismciujbgc-pgk-ekac-FA-vit K 45 mg iron- 800 mcg-120 mcg (Bariatric Multivitamins) caps PO psyllium husk (Daily Fiber) 0.52 grams PO BEDTIME HPI HPI Comments History of Present Illness Details This?is a?42?yo female who is s/p LSG 08/01/2021. Presents for 2 year 2 month post op visit. Weight at last visit on 08/07/2021 was 196.8 pounds with a BMI of 30.8, weight today is 200.8 pounds, representing a 4 pound weight gain with a BMI today of 31.4.? No complaints of nausea, emesis, abdominal pain or reflux, or constipation. Present meal plan includes: 2 Premier shakes each 1 scoop in water 1 protein bar cut into pieces each over 2 hours 1 meal - 6-7 forkfull bites of protein and same veg. she reports she has not started this plan yet, given at last visit by MARIE. Exercise routine includes: 5-6x week HIIT training, strength training, walking- 40+ min, mittal about 500 caloriesworks out in evening after work Pt reports ongoing problems of excess skin of abdomen, causing itchy painful rashes in skin fold. She also notices that moisture collects in the skin fold.? Very uncomfortable during exercise, impedes movement and unable to exercise to her full capacity or sometimes even walk regularly without discomfort. Has tried clotrimazole ointment to help rashes but this has not resolved the issue. Pt also reports new rashes of excess skin of upper arms. She has developed an itchy rash under both arms particularly when she sweats, such as when exercising at the gym or in hot weather. She has tried some powder/cream and always tries to keep dry, but this has not helped. She notices difficulty with walking, as her arms move and cause increased friction. [facility] Medical History Back pain COVID-19 vaccine series completed Degenerative disc disease, lumbar History of COVID-19 Surgical History History of repair of hiatal hernia Status post laparoscopic sleeve gastrectomy History of tonsillectomy Hx of cervical polypectomy H/O tubal ligation History of cholecystectomy Family History Father No problems noted. Mother No problems noted. Sister No problems noted. Son No problems noted. Son No problems noted. Son No problems noted. 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 (children) Do you presently have visiting nurse or other home services: No Alcohol intake: current Alcohol intake frequency: holidays/special occasions only Comment: feels like gas Patient Tobacco Use Status: Never used Tobacco e-Cigarette/Vaping Use: Never Used Second Hand Smoke Exposure: No service: No Current occupational status: employed Cognitive needs: No Hearing needs: No Vision needs: No Physical Exam Const General: cooperative, comfortable and no acute distress Orientation/consciousness: patient oriented x3 Skin Other: rashes of bilateral axillae, R>L Neuro General: patient oriented x3 Assessment & Plan Assessment & Plan (1) Excess skin: Code(s): L98.7 - Excessive and redundant skin and subcutaneous tissue (2) Obesity (BMI 30-39.9): Code(s): E66.9 - Obesity, unspecified (3) Status post laparoscopic sleeve gastrectomy: Code(s): Z98.84 - Bariatric surgery status Plan Pt plans to try meal plan given by RD. She feels she will be more consistent after the holidays. She can continue clotrimazole ointment for rashes of excess skin of abdomen and can also try for axillary rashes. RTC 3 months. Encouraged pt to start texting me weekly once she restarts above plan for accountability. Patient is obese and is not considered stable at this time. I spent a total of 30 minutes reviewing/updating records, examining the patient and counseling the patient on weight management as detailed above. Coding Level of Care Code Est Pt Level 4 (27732) Diagnoses Excess skin L98.7 Obesity (BMI 30-39.9) E66.9 Status post laparoscopic sleeve gastrectomy Z98.84
[2023-10-09 09:40] VITALS: BP 119/58; PULSE 70; TEMP 37; O2SAT 99; BMI 31.4
== END 2023-10-09 10:18 | disposition home or self-care (01) ==
PROVIDERS: PCP Internal Medicine; Visit Provider Physician Assistant Surgical
DX: L98.7 Excessive and redundant skin and subcutaneous tissue (principal); E66.9 Obesity, unspecified; Z98.84 Bariatric surgery status
CPT/HCPCS: 99214

== ENCOUNTER → 2023-10-09 09:24 | Outpatient (BNVA) | payer OTHER, MEDICAID, SELFPAY | PROVIDERS: PCP Internal Medicine; Visit Provider Physician Assistant Surgical ==

== ENCOUNTER 2023-10-16 08:56 | Outpatient (AMB) | payer OTHER, MEDICAID, SELFPAY ==
[2023-10-16 08:58] VITALS: BP 110/68; PULSE 65; O2SAT 99; BMI 32.3
--- NOTE | 2023-10-16 08:58 | A.OFFPC_ITS ---
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: Not Required per policy Accompanied by: Self / Same As Patient Allergies Seasonal Allergies Allergy (Intermediate, Verified 10/16/23 08:58) red eye, itching eye, watery eyes, apple [Apple] Allergy (Mild, Verified 10/16/23 08:58) THROAT ITCHING stephens Allergy (Mild, Verified 10/16/23 08:58) THROAT ITCHING pear [Pear] Allergy (Mild, Verified 10/16/23 08:58) THROAT ITCHING Medication List - Last Reconciled 10/16/23 by Chip Barbour MD calcium citrate 1,000 mg PO DAILY cholecalciferol (vitamin D3) 125 mcg PO DAILY clotrimazole 1% 1 appl topical BID gabapentin 300 mg PO BEDTIME wljezwpioqft-aha-brdm-FA-vit K 45 mg iron- 800 mcg-120 mcg (Bariatric Multivitamins) caps PO psyllium husk (Daily Fiber) 0.52 grams PO BEDTIME Tobacco use date assessed: 10/16/23 Dental Screening Dental Screen Date: 10/16/23 Did you have a dental visit in the last 12 months?: Yes Did you have a dental problem in the last 6 months where you did not have access to dental care?: No Was dental information given to patient?: Patient has dentist HPI Annual exam HPI Details healthy [facility] Medical History Obesity COVID-19 vaccine series completed History of COVID-19 Degenerative disc disease, lumbar Back pain Surgical History History of repair of hiatal hernia Status post laparoscopic sleeve gastrectomy History of tonsillectomy Hx of cervical polypectomy H/O tubal ligation History of cholecystectomy Family History Father No problems noted. Mother No problems noted. Sister No problems noted. Son No problems noted. Son No problems noted. Son No problems noted. 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 1. Little interest or pleasure in doing things: not at all 2. Feeling down, depressed, or hopeless: not at all 3. Trouble falling or staying asleep, or sleeping too much: not at all 4. Feeling tired or having little energy: not at all 5. Poor appetite or overeating: not at all 6. Feeling bad about yourself - or that you are a failure or have let yourself or your family down: not at all 7. Trouble concentrating on things, such as reading the newspaper or watching television: not at all 8. Moving or speaking so slowly that other people could have noticed. Or the opposite - being so fidgety or restless that you have been moving around a lot more than usual: not at all 9. Thoughts that you would be better off or of hurting yourself in some way: not at all Total score: 0 Depression Screening Interpretation: Negative Depression Screening Done: Yes 33711 - PHQ-9 Billing: Yes Source: Developed by Drs. mJ Arnold, Kirsty Morrison, Lawrence Salgado and colleagues, with an educational linda from [employer]. Thrive Questionnaire Date Thrive assessed: 10/16/23 I am a: Patient What is your living situation today?: I have a steady place to live Within the past 12 months, did the food you bought not last and you didn't have the money to get more?: Never true Within the past 12 months, did you worry whether your food would run out before you got money to buy more?: Never true Do you have trouble paying for medicines?: No Do you have trouble getting transportation to medical appointments?: No Do you have trouble paying your heating and electricity bill?: No Do you have trouble taking care of your child, family member or friend?: No Do you have trouble with day-to-day activities such as bathing, preparing meals, shopping, managing finances, etc.?: No Are you currently unemployed and looking for a job?: No Are you interested in more education?: No Please select the resources that you would like help with: None AUDIT C Alcohol Use Questionnaire (AUDIT-C) 1. How often do you have a drink containing alcohol?: Never Total Score: 0 Score Reviewed/Action Taken: Yes GINA-7 AMB Questionnaire GINA-7 Date GINA - 7 assessed: 10/16/23 Feeling nervous, anxious, or on edge: 0 = Not at all Not being able to stop or control worryin = Not at all Worrying too much about different things: 0 = Not at all Trouble relaxin = Not at all Being so restless that it is hard to sit still: 0 = Not at all Becoming easily annoyed or irritable: 0 = Not at all Feeling afraid as if something awful might happen: 0 = Not at all Total GINA-7 score (0-4 normal; 5-9 mild; 10-14 moderate; 15-21 severe): 0 Source: Developed by Drs. Jm Arnold, Kirsty Morrison, Lawrence Salgado and colleagues, with an educational linda from [employer]. GINA-7 Assessment Billing GINA-7 Assessment Tool: GINA-7 Assessment 57957 Review of Systems Const Denies chills, Denies fatigue, Denies headache(s) and Denies weight loss Eyes Denies change in vision, Denies diplopia and Denies eye pain ENT Denies vertigo, Denies dizziness, Denies headache(s) and Denies nasal discharge Card Denies chest pain, Denies rapid heart rate and Denies dyspnea on exertion Resp Denies chest congestion, Denies cough, Denies pain with cough and Denies dyspnea on exertion GI Denies abdominal pain, Denies hematochezia and Denies change in bowel habits Musc Denies myalgias, Denies arthralgias and Denies joint swelling Skin/Breast Denies lesions and Denies unusual bruising Neuro Denies vertigo, Denies dizziness, Denies headache(s) and Denies focal weakness Endo Denies fatigue Physical exam (Primary Care) Vital Signs: Last Vital Signs Pulse 65 10/16/23 08:58 BP 110/68 10/16/23 08:58 Pulse Ox 99 10/16/23 08:58 Oxygen Delivery Method Room Air 10/16/23 08:58 BMI result Body Mass Index 32.3 Tobacco/Smoking Status: Tobacco use Status Tobacco use date assessed 10/16/23 10/16/23 09:03 Patient Tobacco Use Status Never used Tobacco 10/16/23 09:03 e-Cigarette/Vaping Use Never Used 10/16/23 09:03 PHQ-9: PHQ-9 Score PHQ-9: Total score 0 10/16/23 09:03 Depression Screening Interpretation: Negative Thrive Assessment: Date of Thrive Assessment Date Thrive assessed 10/16/23 10/16/23 09:03 Const General: cooperative, healthy appearing and no acute distress Orientation/consciousness: oriented to person, oriented to place and oriented to time HENMT Head: Yes normal to inspection, Yes normocephalic and Yes atraumatic Mouth: Normal oral and palatal mucosa present and tongue normal Throat: Yes posterior oropharynx normal and Yes uvula midline Eyes General: appearance normal, both eyes and all related structures Neck Neck: Yes normal visual inspection, Yes full ROM and Yes no lymphadenopathy Thyroid: Thyroid normal Carotids: normal carotid upstroke Chest Chest palpation & inspection: normal inspection of the chest Resp Effort & Inspection: normal respiratory effort and able to speak in complete sentences Auscultation: clear to auscultation bilaterally Cardio Jugular venous distension: no JVD Palpation: normal PMI Rate: regular rate Rhythm: regular rhythm Heart sounds: S1 normal heart sound present and S2 normal heart sound present GI Inspection: Yes normal to inspection Palpation (GI): Soft to palpation and No hepatosplenomegaly present Auscultation: normal bowel sounds General: Yes no CVA tenderness Back/Spine/Pelvis Back: no CVA tenderness Skin General skin exam: no rashes or lesions noted Neuro General: oriented to person, oriented to place and oriented to time Extrem General: Yes normal to inspection and Yes full ROM Assessment and Plan Assessment & Plan (1) Physical exam: Code(s): Z00.00 - Encounter for general adult medical examination without abnormal findings Plan: stable; do labs Orders: Orders Complete Blood Count Auto Diff Today D64.9 - Anemia, unspecified Lipid Panel Today E78.5 - Hyperlipidemia, unspecified Comprehensive Bowie. Panel Fast Today N28.9 - Disorder of kidney and ureter, unspecified Thyroid Stimulating Hormone Today E03.9 - Hypothyroidism, unspecified Coding Level of Care Code Est Pt Prev Care 40-64y(10582) Diagnoses Physical exam Z00.00 Additional Codes GINA-7 Assessment Billing - GINA-7 Assessment Tool: GINA-7 Assessment 28481 ([id number])
== END 2023-10-16 09:16 | disposition home or self-care (01) ==
PROVIDERS: Visit Provider Internal Medicine
DX: Z00.00 Encounter for general adult medical examination without abnormal findings (principal)
CPT/HCPCS: 99396

== ENCOUNTER 2024-02-12 09:45 | Outpatient (AMB) | payer OTHER, MEDICAID, SELFPAY ==
--- NOTE | 2024-02-12 09:48 | A.OFFVIS_ITS ---
Intake VS Expanded 02/12/24 09:56 BP 115/55 L Blood Pressure Location Rt brachial Blood Pressure Position Sitting Pulse 80 Pulse Source Pulse Oximeter Temp 97.9 F Temperature Source Temporal Artery Scan Pulse Oximetry 97 Oxygen Delivery Method Room Air Height 5 ft 7 in Weight 206 lb 3.2 oz BMI 32.3 Body Fat % 37.9 Body Fat Mass 78.0 Fat Free Mass 128.0 Visceral Fat Rating 8.0 Body Water % 44.4 Body Water Mass 91.4 Muscle Mass/Score 121.6 Basal Metabolic Rate/Score 1,759 Intake Visit Reasons: (OV) PO LSG 08/01/21 Allergies Seasonal Allergies Allergy (Intermediate, Verified 02/12/24 09:59) red eye, itching eye, watery eyes, apple [Apple] Allergy (Mild, Verified 02/12/24 09:59) THROAT ITCHING stephens Allergy (Mild, Verified 02/12/24 09:59) THROAT ITCHING pear [Pear] Allergy (Mild, Verified 02/12/24 09:59) THROAT ITCHING Medication List - Last Reconciled 02/12/24 by ADILENE Celis calcium citrate 1,000 mg PO DAILY cholecalciferol (vitamin D3) 125 mcg PO DAILY clotrimazole 1% 1 appl topical BID gabapentin 300 mg PO BEDTIME avwymsmmzpil-ijm-vlcb-FA-vit K 45 mg iron- 800 mcg-120 mcg (Bariatric Mul tivitamins) caps PO psyllium husk (Daily Fiber) 0.52 grams PO BEDTIME HPI HPI Comments History of Present Illness Details This?is a?43?yo female who is s/p LSG 08/01/2021. Presents for 18 month post op visit. Weight increase +5.4lbs since last OV 4 months ago.? No complaints of nausea, emesis, abdominal pain or reflux, or constipation. Present meal plan includes: 2 Premier shakes each [address]; 1 protein bar cut into pieces e ach over 2 hours; 1 meal- 6-7 forkfu l bites of protein and same veg. Pt reports starting p gerber after the holi days and stuck to it for a month, bu t struggled becaus e she was hungry. Would eat sugary i tems. Exercise r outine includes: 5-6x week HIIT tra ining, strength tr aining, walking- 4 0+ min, mittal abou t 500 calories wor ks out in evening after work Pt rep orts ongoing probl ems of excess skin of abdomen, causi ng itchy painful r ashes in skin fold . She also notices that moisture col lects in the skin fold.? Very uncomf ortable during exe rcise, impedes mov ement and unable t o exercise to her full capacity or s ometimes even walk regularly without discomfort. Has t ried clotrimazole ointment to help r ashes but this has not resolved the issue. Pt also reports ongoing r ashes of excess sk in of upper arms. She has developed an itchy rash unde r both arms partic ularly when she sw eats, such as when exercising at the gym or in hot wea ther. She has trie d some powder/crea m and always tries to keep dry, but this has not helpe d. She notices dif ficulty with kirti wang, as her arms mo ve and cause incre ased friction. [facility] Medical History Obesity COVID-19 vaccine series completed History of COVID-19 Degenerative disc disease, lumbar Back pain Surgical History History of repair of hiatal hernia Status post laparoscopic sleeve gastrectomy History of tonsillectomy Hx of cervical polypectomy H/O tubal ligation History of cholecystectomy Family History Father No problems noted. Mother No problems noted. Sister No problems noted. Son No problems noted. Son No problems noted. Son No problems noted. 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: Yes (children) Do you presently have visiting nurse or other home services: No Alcohol intake: current Alcohol intake frequency: holidays/special occasions only Comment: feels like gas Patient Tobacco Use Status: Never used Tobacco e-Cigarette/Vaping Use: Never Used Second Hand Smoke Exposure: No service: No Current occupational status: employed Cognitive needs: No Hearing needs: No Vision needs: Yes Physical Exam Vital Signs: Last Vital Signs Temp 97.9 F 02/12/24 09:56 Pulse 80 02/12/24 09:56 BP 115/55 L 02/12/24 09:56 Pulse Ox 97 02/12/24 09:56 Oxygen Delivery Method Room Air 02/12/24 09:56 BMI result Body Mass Index 32.3 Assessment & Plan Assessment & Plan (1) Excess skin: Code(s): L98.7 - Excessive and redundant skin and subcutaneous tissue (2) Obesity (BMI 30-39.9): Code(s): E66.9 - Obesity, unspecified (3) Status post laparoscopic sleeve gastrectomy: Code(s): Z98.84 - Bariatric surgery status Plan Pt feels hungry on current plan. She does exercise a lot so I suggested adding one additional snack (shake, bar or yogurt) in afternoon to ensure she is getting adequate protein for her activity level. She remains interested in skin removal surgery. Can contact Dr. Rodriguez's office if she does not want to wait to meet our BMI requirements. RTC 3 months. Encouraged pt to text me between appts with any concerns. Patient is obese and is not considered stable at this time. I spent a total of 30 minutes reviewing/updating records, examining the patient and counseling the patient on weight management as detailed above. Coding Level of Care Code Est Pt Level 4 (96089) Diagnoses Excess skin L98.7 Obesity (BMI 30-39.9) E66.9 Status post laparoscopic sleeve gastrectomy Z98.84
[2024-02-12 09:56] VITALS: BP 115/55; PULSE 80; TEMP 36.6; O2SAT 97; BMI 32.3
== END 2024-02-12 10:30 | disposition home or self-care (01) ==
PROVIDERS: PCP Internal Medicine; Visit Provider Physician Assistant Surgical
DX: L98.7 Excessive and redundant skin and subcutaneous tissue (principal); E66.9 Obesity, unspecified; Z98.84 Bariatric surgery status
CPT/HCPCS: 99214

== ENCOUNTER → 2024-02-12 09:45 | Outpatient (BNVA) | payer OTHER, MEDICAID, SELFPAY | PROVIDERS: PCP Internal Medicine; Visit Provider Physician Assistant Surgical ==

== ENCOUNTER → 2024-08-09 10:11 | Outpatient (BNVA) | payer OTHER, MEDICAID, SELFPAY | PROVIDERS: PCP Internal Medicine; Visit Provider Physician Assistant Surgical ==

== ENCOUNTER 2024-09-07 09:14 | Outpatient (AMB) | payer OTHER, MEDICAID, SELFPAY ==
--- NOTE | 2024-09-07 09:08 | MHC.OFFVISWM ---
VS Expanded 09/07/24 09:12 Height 5 ft 7 in Weight 202 lb BMI 31.6 Intake Visit Reasons: TV PO LSG 08/01/21 Allergies Seasonal Allergies Allergy (Intermediate, Verified 02/12/24 09:59) red eye, itching eye, watery eyes, apple [Apple] Allergy (Mild, Verified 02/12/24 09:59) THROAT ITCHING stephens Allergy (Mild, Verified 02/12/24 09:59) THROAT ITCHING pear [Pear] Allergy (Mild, Verified 02/12/24 09:59) THROAT ITCHING Medication List - Last Reconciled 09/07/24 by ADILENE Celis calcium citrate 1,000 mg PO DAILY cholecalciferol (vitamin D3) 125 mcg PO DAILY clotrimazole 1% 1 appl topical BID gabapentin 300 mg PO BEDTIME [id number]-FA-vit K 45 mg iron- 800 mcg-120 mcg (Bariatric Multivitamins) caps PO psyllium husk (Daily Fiber) 0.52 grams PO BEDTIME HPI Comments Details: This?is a?02/12/2023?yo female who is s/p LSG 08/01/2021. Presents for 3 year post op visit. Weight loss of 4.2lbs since last OV in February.? No complaints of nausea, emesis, abdominal pain or reflux, or constipation. Present meal plan includes: 2 Premier shakes each 1 scoop in water; 1 Pure protein bar cut into pieces each over 2 hours; 1 meal- 6-7 forkful bites of protein and same veg. At last visit recommended adding a high protein snack if hungry. Exercise routine includes: 5-6x week HIIT training, strength training, walking- 40+ min, mittal about 500 calories works out in evening after work Pt reports ongoing problems of excess skin of abdomen, causing itchy painful rashes in skin fold. She also notices that moisture collects in the skin fold. Very uncomfortable during exercise, impedes movement and unable to exercise to her full capacity or sometimes even walk regularly without discomfort. Has tried clotrimazole ointment to help rashes but this has not resolved the issue. Pt also reports ongoing rashes of excess skin of upper arms. She has developed an itchy rash under both arms particularly when she sweats, such as when exercising at the gym or in hot weather. She has tried some powder/cream and always tries to keep dry, but this has not helped. She notices difficulty with walking, as her arms move and cause increased friction. [facility] Medical History Obesity COVID-19 vaccine series completed History of COVID-19 Degenerative disc disease, lumbar Back pain Surgical History History of repair of hiatal hernia Status post laparoscopic sleeve gastrectomy History of tonsillectomy Hx of cervical polypectomy H/O tubal ligation History of cholecystectomy Family History Father No problems noted. Mother No problems noted. Sister No problems noted. Son No problems noted. Son No problems noted. Son No problems noted. 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) Do you presently have visiting nurse or other home services: No Alcohol intake: current Alcohol intake frequency: holidays/special occasions only Comment: feels like gas Patient Tobacco Use Status: Never used Tobacco e-Cigarette/Vaping Use: Never Used Second Hand Smoke Exposure: No service: No Current occupational status: employed Cognitive needs: No Hearing needs: No Vision needs: Yes Telehealth Telehealth Telehealth Platform: Telephone Location of provider rendering services: other Location of patient: address on file Patient Identification confirmed using: Name, : Yes Telehealth method: voice only Patient verbally consented to treatment: Yes Patient verbally consented to billing insurance company: Yes Patient informed of any privacy concerns related to visit: Yes Minutes spent on Phone/Video with Pt.: 14 Assessment & Plan Assessment & Plan (1) Obesity (BMI 30-39.9): Code(s): E66.9 - Obesity, unspecified Category: Medical (2) Excess skin: Code(s): L98.7 - Excessive and redundant skin and subcutaneous tissue Category: Medical (3) Status post laparoscopic sleeve gastrectomy: Code(s): Z98.84 - Bariatric surgery status Category: Surgical Plan Pt is willing to try a different high protein meal plan to help with weight loss. Gave her the option of: 2 PP bars, 1 shake with 1 scoop Premier, 1 25g yogurt, or 1 PP bar, 1 shake with 1 scoop, 1 shake with 1.5 scoops, 1 yogurt Labs ordered. Pt is interested in a referral to Dr Rodriguez- will fax notes. RTC 3-4 months. She will text me between visits with any questions/concerns. I spent a total of 30 minutes reviewing/updating records, examining the patient and counseling the patient on weight management as detailed above. Orders: Orders Insulin Today Z.84 - Bariatric surgery status Hemoglobin A1c Today Z98.84 - Bariatric surgery status IRON PROFILE Today Z.84 - Bariatric surgery status Comprehensive Met. Panel Today Z.84 - Bariatric surgery status Vitamin B12 and Folate Today Z.84 - Bariatric surgery status Zinc Today Z.84 - Bariatric surgery status Vitamin B1 Today Z98.84 - Bariatric surgery status Ferritin Today Z98.84 - Bariatric surgery status Vitamin D 25-OH Total Today Z98.84 - Bariatric surgery status FL upper GI w air Today Z98.84 - Bariatric surgery status Complete Blood Count Auto Diff Today Z98.84 - Bariatric surgery status Lipid Panel Today Z98.84 - Bariatric surgery status C Reactive Protein Today Z98.84 - Bariatric surgery status Vitamin A Today Z98.84 - Bariatric surgery status TSH reflex Free T4 Today Z98.84 - Bariatric surgery status US abdomen comp w elastography Today Z98.84 - Bariatric surgery status XR chest 2V Today Z98.84 - Bariatric surgery status ECG 12 lead EKG Today Z98.84 - Bariatric surgery status
[2024-09-07 09:12] VITALS: BMI 31.6
== END 2024-09-07 09:33 | disposition home or self-care (01) ==
LOC: HO.HBS 09:15
PROVIDERS: PCP Internal Medicine; Visit Provider Physician Assistant Surgical
DX: E66.9 Obesity, unspecified (principal); L98.7 Excessive and redundant skin and subcutaneous tissue; Z98.84 Bariatric surgery status
CPT/HCPCS: 99214; G2211

== ENCOUNTER → 2024-09-07 09:14 | Outpatient (BNVA) | payer OTHER, MEDICAID, SELFPAY | PROVIDERS: PCP Internal Medicine; Visit Provider Physician Assistant Surgical ==

== ENCOUNTER 2024-10-01 07:25 | Outpatient (REF) | payer OTHER, MEDICAID, SELFPAY | END 2024-10-01 07:26 | disposition home or self-care (01) | LOC: HO.US 07:25 | PROVIDERS: PCP Internal Medicine; Visit Provider Physician Assistant Surgical | DX: Z98.84 Bariatric surgery status (principal) | CPT/HCPCS: 71046; 76700; 76981 ==

== ENCOUNTER → 2024-10-01 07:28 | Outpatient (BNV) | payer OTHER, MEDICAID, SELFPAY | PROVIDERS: PCP Internal Medicine; Visit Provider Radiology Diagnostic Radiology | DX: Z48.815 Encounter for surgical aftercare following surgery on the digestive system (principal); N20.0 Calculus of kidney; Z98.84 Bariatric surgery status | CPT/HCPCS: 76700; 76981 ==

== ENCOUNTER 2024-10-20 06:48 | Outpatient (REF) | payer OTHER, MEDICAID, SELFPAY ==
--- NOTE | ~2024-10-20 | FL_ITS ---
EXAMINATION: XR FLUOROSCOPY UPPER GI WITH AIR CLINICAL INFORMATION: History of sleeve gastrectomy. COMPARISON: None TECHNIQUE: Fluoroscopic air contrast upper GI examination was performed utilizing standard techniques with thin and thick barium and effervescent granules. Numerous spot images were obtained. FINDINGS: Dual and single contrast images of the esophagus demonstrate normal caliber, contour, and mucosal pattern. No evidence of stricture, mass, or ulcerations identified. Esophageal peristalsis was normal. A small to moderate-sized type I hiatal hernia is present. Moderate gastroesophageal reflux is seen up to the midesophagus. Dual contrast and single contrast images of the stomach demonstrated post surgical changes consistent with prior history of sleeve gastrectomy. Evaluation of the gastric mucosa is limited due to underdistention of the stomach from poor tolerance of effervescent granules. No masses are present. Contrast freely passed into the gastric antrum and duodenal bulb without delay. Single and air-contrast images of the duodenal bulb demonstrate no abnormality. The duodenal sweep has a normal appearance, course, and mucosal fold appearance. The imaged proximal jejunum has a normal fold pattern and caliber. Incidentally, contrast opacifies the right colon less than 10 minutes. There is dilution of the barium as it passes distally through the ileum and into the colon. FLUOROSCOPY TIME: 4 minutes 12 seconds Number of Spot Images: 10 Number of Cine: 13 DOSE AREA PRODUCT: 2805 uGy-m2 (microgray-meter squared) FL/FL upper GI w air IMPRESSION: 1. Small moderate-sized type I hiatal hernia. 2. Moderate gastroesophageal reflux. 3. Post surgical changes consistent with prior history of sleeve gastrectomy. 4. Limited evaluation of the gastric mucosa due to underdistention of the stomach from poor tolerance of effervescent granules. No masses are present. 5. Rapid transit of the barium column, with the right colon opacified in less than 10 minutes. There is dilution of the barium as it passes distally through the ileum. Etiology is unclear, however, this may represent a malabsorption disorder. This procedure was performed by Juni Carrillo PA-C, and supervised by Dr. Campos Electronically signed by: Ayad Campos MD 10/20/2024 05:42 PM [facility]
[2024-10-20 07:06] LABS: MANUAL DIFF FLAG NO
--- NOTE | 2024-10-20 07:06 | ECG_ITS ---
Test Reason : cp Blood Pressure : / mmHG Vent. Rate : 060 BPM Atrial Rate : 060 BPM P-R Int : 168 ms QRS Dur : 088 ms QT Int : 414 ms P-R-T Axes : 072 018 019 degrees QTc Int : 414 ms Normal sinus rhythm Normal ECG When compared with ECG of 26-JUL-2021 10:27, No significant change was found Referred By: Lata Stacy Electronically Signed By:NILSA DARBY MD
[2024-10-20 07:38] LABS: Basophils Absolute Auto 0.1 X10*3/uL (0.0-0.2); Eosinophils Absolute Auto 0.2 X10*3/uL (0.0-0.4); Eosinophils Percent Auto 3.1 % (0-4); Hematocrit 35.4 % (37.0-47.0); Hemoglobin 12.1 g/dl (12.0-16.0); Imm Gran Abs Auto 0.02 X10*3/uL (0.00-0.03); Imm Gran Pct Auto 0.4 % (0.0-0.4); Lymphocytes Absolute Auto 1.6 X10*3/uL (1.2-4.9); Lymphocytes Percent Auto 30.9 % (20-40); Mean Corpuscular HGB Conc 34.2 g/dl (31.0-35.0); Mean Corpuscular Hemoglobin 28.4 pg (27.0-33.0); Mean Corpuscular Volume 83.1 fL (80.0-98.0); Mean Platelet Volume 10.3 fL (9.4-12.3); Monocytes Absolute Auto 0.5 X10*3/uL (0.1-1.2); Neutrophils Absolute Auto 2.8 x10*3/uL (2.0-8.3); Neutrophils Percent Auto 55.6 % (45-73); Platelet Count 222 X10*3/uL (160-400); Red Blood Count 4.26 X10*6/uL (4.20-5.50); Red Cell Distribution Width 12.5 % (11.0-16.0); White Blood Count 5.1 X10*3/uL (4.8-10.8)
[2024-10-20 07:52] LABS: Estimated Average Glucose 97 mg/dL; Hemoglobin A1C 98.5509 umol/L; Total Hemoglobin (HGBA1C) 3144.4899 umol/L
[2024-10-20 08:13] LABS: Alanine Aminotransferase 18 U/L (0-31); Albumin Level 3.9 g/dL (3.5-5.0); Alkaline Phosphatase 52 U/L (39-117); Anion Gap 11 (12-20); Aspartate Amino Transferase 22 U/L (5-31); Bilirubin Total 0.4 mg/dL (0.0-1.0); Blood Urea Nitrogen 14 mg/dL (9-16); C Reactive Protein 0.16 mg/dL (< or = 0.50); Calcium 9.3 mg/dL (8.4-10.2); Carbon Dioxide 24 mmol/L (22-29); Chloride 109 mmol/L (96-108); Cholesterol 150 mg/dL (<200); Estimated Glomerular Filt Rate > 60; Glucose Random 88 mg/dL (60-115); HDL Cholesterol 49 mg/dL (>40); Iron 85 mcg/dL (30-160); LDL Cholesterol Calculated 85 mg/dL (<100); Percent Iron Saturation 34 % (15-50); Sodium 140 mmol/L (135-145); Total Iron Binding Capacity 247 mcg/dL (228-428); Total Protein 6.6 g/dL (6.5-8.0); Triglycerides 80 mg/dL (<150); Unsaturated Iron Binding 162 ug/dL
[2024-10-20 08:33] LABS: Ferritin 38 ng/mL (10-250); Insulin 3 uU/mL (2-29); TSH reflex Free T4 0.95 uIU/mL (0.32-4.0); Vitamin D 25-OH Total 68.6 ng/mL (>30)
[2024-10-20 08:36] LABS: Folate 13.8 ng/mL (> or = 4.0); Vitamin B12 1266 pg/mL (200-900)
[2024-10-24 13:23] LABS: Zinc 75 mcg/dL (60-130)
[2024-10-26 18:44] LABS: Vitamin A 53 mcg/dL (38-98)
[2024-10-28 06:18] LABS: Vitamin B1 17 nmol/L (8-30)
== END 2024-10-20 06:49 | disposition home or self-care (01) ==
LOC: HO.XRAY 06:48
PROVIDERS: PCP Internal Medicine; Visit Provider Physician Assistant Surgical
DX: Z98.84 Bariatric surgery status (principal); Z13.1 Encounter for screening for diabetes mellitus; Z13.220 Encounter for screening for lipoid disorders; Z13.29 Encounter for screening for other suspected endocrine disorder
CPT/HCPCS: 36415; 74246; 80053; 80061; 82306; 82607; 82728; 82746; 83036; 83525; 83540; 84425; 84443; 84590; 84630; 85025; 86140; 93005

== ENCOUNTER → 2024-10-20 07:06 | Outpatient (BNV) | payer OTHER, MEDICAID, SELFPAY | PROVIDERS: PCP Internal Medicine; Visit Provider Internal Medicine Cardiovascular Disease | DX: R07.9 Chest pain, unspecified (principal) | CPT/HCPCS: 93010 ==

== ENCOUNTER → 2024-10-20 07:14 | Outpatient (BNV) | payer OTHER, MEDICAID, SELFPAY | PROVIDERS: PCP Internal Medicine; Visit Provider Physician Assistant Surgical | DX: K44.9 Diaphragmatic hernia without obstruction or gangrene (principal) | CPT/HCPCS: 74246 ==

== ENCOUNTER 2024-10-22 13:21 | Outpatient (AMB) | payer OTHER, MEDICAID, SELFPAY ==
[2024-10-22 13:33] VITALS: BP 112/58; PULSE 61; O2SAT 98; BMI 33.7
--- NOTE | 2024-10-22 13:33 | MHC.PC.OV ---
Vital Signs 10/22/24 13:33 Height 5 ft 7 in Weight 215 lb BMI 33.7 BP 112/58 L Blood Pressure Location Lt brachial Position Sitting Pulse 61 Pulse Source Pulse Oximeter Pulse Oximetry (%) 98 Oxygen Delivery Method Room Air Intake Visit Reasons: PE Sharepoint Engineer Required: No Case Filler: Not Required per policy Accompanied by: Self / Same As Patient Allergies Seasonal Allergies Allergy (Intermediate, Verified 10/22/24 13:33) red eye, itching eye, watery eyes, apple [Apple] Allergy (Mild, Verified 10/22/24 13:33) THROAT ITCHING stephens Allergy (Mild, Verified 10/22/24 13:33) THROAT ITCHING pear [Pear] Allergy (Mild, Verified 10/22/24 13:33) THROAT ITCHING Medication List - Last Reconciled 10/25/24 by Chip Barbour MD calcium citrate 1,000 mg PO DAILY cholecalciferol (vitamin D3) 125 mcg PO DAILY clotrimazole 1% 1 appl topical BID gabapentin 300 mg PO BEDTIME [id number]-lyd-yjcp-FA-vit K 45 mg iron- 800 mcg-120 mcg (Bariatric Multivitamins) caps PO psyllium husk (Daily Fiber) 0.52 grams PO BEDTIME Tobacco use date assessed: 10/22/24 Dental Screening Dental Screen Date: 10/22/24 Did you have a dental visit in the last 12 months?: Yes Did you have a dental problem in the last 6 months where you did not have access to dental care?: No Was dental information given to patient?: Patient has dentist HPI PE HPI Details healthy [facility] Medical History Obesity COVID-19 vaccine series completed History of COVID-19 Degenerative disc disease, lumbar Back pain Surgical History History of repair of hiatal hernia Status post laparoscopic sleeve gastrectomy History of tonsillectomy Hx of cervical polypectomy H/O tubal ligation History of cholecystectomy Family History Father No problems noted. Mother No problems noted. Sister No problems noted. Son No problems noted. Son No problems noted. Son No problems noted. 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 1. Little interest or pleasure in doing things: not at all 2. Feeling down, depressed, or hopeless: not at all 3. Trouble falling or staying asleep, or sleeping too much: not at all 4. Feeling tired or having little energy: not at all 5. Poor appetite or overeating: not at all 6. Feeling bad about yourself - or that you are a failure or have let yourself or your family down: not at all 7. Trouble concentrating on things, such as reading the newspaper or watching television: not at all 8. Moving or speaking so slowly that other people could have noticed. Or the opposite - being so fidgety or restless that you have been moving around a lot more than usual: not at all 9. Thoughts that you would be better off or of hurting yourself in some way: not at all Total score: 0 Source: Developed by Drs. Jm Arnold, Kirsty Morrison, Lawrence Salgado and colleagues, with an educational linda from [employer]. Thrive Questionnaire Date Thrive assessed: 10/14/24 I am a: Patient What is your living situation today?: I have a steady place to live Within the past 12 months, did the food you bought not last and you didn't have the money to get more?: Never true Within the past 12 months, did you worry whether your food would run out before you got money to buy more?: Never true Do you have trouble paying for medicines?: No Do you have trouble getting transportation to medical appointments?: No Do you have trouble paying your heating and electricity bill?: No Do you have trouble taking care of your child, family member or friend?: No Do you have trouble with day-to-day activities such as bathing, preparing meals, shopping, managing finances, etc.?: No Are you currently unemployed and looking for a job?: No Are you interested in more education?: No Please select the resources that you would like help with: None Currently or been in a relationship where the following occur: No concerns reported THRIVE Score: 0 GINA-7 AMB Questionnaire GINA-7 Date GINA - 7 assessed: 10/16/23 Source: Developed by Drs. Jm Arnold, Kirsty Morrison, Lawrence Salgado and colleagues, with an educational linda from [employer]. Review of Systems Const Denies chills, Denies fatigue, Denies headache(s) and Denies weight loss Eyes Denies change in vision, Denies diplopia and Denies eye pain ENT Denies vertigo, Denies dizziness, Denies headache(s) and Denies nasal discharge Card Denies chest pain, Denies rapid heart rate and Denies dyspnea on exertion Resp Denies chest congestion, Denies cough, Denies pain with cough and Denies dyspnea on exertion GI Denies abdominal pain, Denies hematochezia and Denies change in bowel habits Musc Denies myalgias, Denies arthralgias and Denies joint swelling Skin/Breast Denies lesions and Denies unusual bruising Neuro Denies vertigo, Denies dizziness, Denies headache(s) and Denies focal weakness Endo Denies fatigue Physical exam (Primary Care) Vital Signs: Last Vital Signs Pulse 61 10/22/24 13:33 BP 112/58 L 10/22/24 13:33 Pulse Ox 98 10/22/24 13:33 Oxygen Delivery Method Room Air 10/22/24 13:33 BMI result Body Mass Index 33.7 Tobacco/Smoking Status: Tobacco use Status Tobacco use date assessed 10/22/24 10/22/24 13:37 Patient Tobacco Use Status Never used Tobacco 10/22/24 13:37 Tobacco use type Cigarette 10/22/24 13:37 e-Cigarette/Vaping Use Never Used 10/22/24 13:37 PHQ-9: PHQ-9 Score PHQ-9: Total score 0 10/22/24 13:37 Thrive Assessment: Date of Thrive Assessment Date Thrive assessed 10/14/24 10/22/24 13:37 Currently or been in a relationship where the following occur: No concerns reported Const General: cooperative, healthy appearing and no acute distress Orientation/consciousness: oriented to person, oriented to place and oriented to time HENMT Head: Yes normal to inspection, Yes normocephalic and Yes atraumatic Mouth: Normal oral and palatal mucosa present and tongue normal Throat: Yes posterior oropharynx normal and Yes uvula midline Eyes General: appearance normal, both eyes and all related structures Neck Neck: Yes normal visual inspection, Yes full ROM and Yes no lymphadenopathy Thyroid: Thyroid normal Carotids: normal carotid upstroke Chest Chest palpation & inspection: normal inspection of the chest Resp Effort & Inspection: normal respiratory effort and able to speak in complete sentences Auscultation: clear to auscultation bilaterally Cardio Jugular venous distension: no JVD Palpation: normal PMI Rate: regular rate Rhythm: regular rhythm Heart sounds: S1 normal heart sound present and S2 normal heart sound present GI Inspection: Yes normal to inspection Palpation (GI): Soft to palpation and No hepatosplenomegaly present Auscultation: normal bowel sounds General: Yes no CVA tenderness Back/Spine/Pelvis Back: no CVA tenderness Skin General skin exam: no rashes or lesions noted Neuro General: oriented to person, oriented to place and oriented to time Extrem General: Yes normal to inspection and Yes full ROM Coding Level of Care Code Est Pt Prev Care 40-64y(59740) Diagnoses Physical exam Z00.00 Assessment & Plan Assessment & Plan (1) Physical exam: Code(s): Z00.00 - Encounter for general adult medical examination without abnormal findings Category: Medical Plan: stable; do labs Orders: Orders Lipid Panel Today Z13.220 - Encounter for screening for lipoid disorders Thyroid Stimulating Hormone Today Z13.29 - Encounter for screening for other suspected endocrine disorder Complete Blood Count Auto Diff Today Z13.0 - Encounter for screening for diseases of the blood and blood-forming organs and certain disorders involving the immune mechanism Comprehensive [place]. Panel Fast Today Z13.9 - Encounter for screening, unspecified
== END 2024-10-22 13:49 | disposition home or self-care (01) ==
PROVIDERS: PCP Internal Medicine; Visit Provider Internal Medicine
DX: Z00.00 Encounter for general adult medical examination without abnormal findings (principal)

== ENCOUNTER 2025-06-09 09:44 | Outpatient (AMB) | payer OTHER, SELFPAY ==
--- NOTE | 2025-06-09 09:52 | A.OFFPC_ITS ---
Vital Signs 06/09/25 09:53 Height 5 ft 7 in Weight 233 lb 2 oz BMI 36.5 BP 112/64 Blood Pressure Location Lt brachial Position Sitting Pulse 54 Pulse Source Pulse Oximeter Temp 97.4 F Temp Source Temporal Artery Scan Pulse Oximetry (%) 99 Oxygen Delivery Method Room Air Intake Visit Reasons: RACHEL Dr. Barbour Fisher Purse Seine Required: No Accompanied by: Self / Same As Patient Allergies Seasonal Allergies Allergy (Intermediate, Verified 06/09/25 10:05) red eye, itching eye, watery eyes, apple (Apple) Allergy (Mild, Verified 06/09/25 10:05) THROAT ITCHING stephens Allergy (Mild, Verified 06/09/25 10:05) THROAT ITCHING pear (Pear) Allergy (Mild, Verified 06/09/25 10:05) THROAT ITCHING Medication List - Last Reconciled 06/09/25 by Hoa Pruitt PA-C calcium citrate 1,000 mg PO DAILY cholecalciferol (vitamin D3) 125 mcg PO DAILY clotrimazole 1% 1 appl topical BID gabapentin 300 mg PO BEDTIME vgpyeopsdzzj-[id number]-grru-FA-vit K 45 mg iron- 800 mcg-120 mcg (Bariatric Multivitamins) caps PO psyllium husk (Daily Fiber) 0.52 grams PO BEDTIME Tobacco use date assessed: 06/09/25 Dental Screening Dental Screen Date: 06/09/25 Did you have a dental visit in the last 12 months?: Yes Did you have a dental problem in the last 6 months where you did not have access to dental care?: No Was dental information given to patient?: Patient has dentist HPI RACHEL Dr. Barbour HPI Details 44-year-old female with past medical his tory of adjustment disorder, obesity last seen 10/[address] Barbour coming in for transfer care. Presenting with concerns of perimenopausal symptoms and weight gain post- bariatric surgery. Reports symptoms such as lack of energy, joint pain, sugar cravings, and headaches. Last menstrual period was on May 05, lasting five days. Underwent bariatric surgery in 2020, now experiencing weight gain due to return of hunger hormones. Reports decreased motivation to exercise, influenced by seasonal affective disorder and recent life changes. Experiences low back pain, intermittently uses gabapentin prescribed by Dr. Emiliano LINDSAY. Mammo: yearly with [facility] pap smears: Total Womens w/ Dr. Roberto Vaccines: Td and flu [facility] Medical History Morbid obesity due to excess calories Obesity COVID-19 vaccine series completed History of COVID-19 Degenerative disc disease, lumbar Back pain Surgical History History of repair of hiatal hernia Status post laparoscopic sleeve gastrectomy History of tonsillectomy Hx of cervical polypectomy H/O tubal ligation History of cholecystectomy Family History Father No problems noted. Mother No problems noted. Sister No problems noted. Son No problems noted. Son No problems noted. Son No problems noted. Social History Housing: Apartment Are you a primary resident care manager to a significant other at home: Yes (children) Do you presently have visiting nurse or other home services: No Alcohol intake: current Alcohol intake frequency: holidays/special occasions only Comment: feels like gas Patient Tobacco Use Status: Never used Tobacco Tobacco use type: Cigarette e-Cigarette/Vaping Use: Never Used Second Hand Smoke Exposure: No service: No Current occupational status: employed Cognitive needs: No Hearing needs: No Vision needs: Yes Female Reproductive History Menstrual Duration of menses: 3-5 days control method: permanent sterilization (2005) Permanent Sterilization: BTL Total pregnancies: 2 Full term: 2 History of abnormal pap smear: No (not in the last 5 years ) Date of Mammogram: 06/10/24 History of abnormal mammogram: No Questionnaire PHQ-9 Over the last 2 weeks, how often have you been bothered by any of the following problems? 1. Little interest or pleasure in doing things: not at all 2. Feeling down, depressed, or hopeless: not at all 3. Trouble falling or staying asleep, or sleeping too much: not at all 4. Feeling tired or having little energy: several days 5. Poor appetite or overeating: not at all 6. Feeling bad about yourself - or that you are a failure or have let yourself or your family down: not at all 7. Trouble concentrating on things, such as reading the newspaper or watching television: not at all 8. Moving or speaking so slowly that other people could have noticed. Or the opposite - being so fidgety or restless that you have been moving around a lot more than usual: not at all 9. Thoughts that you would be better off or of hurting yourself in some way: not at all Total score: 1 Depression Screening Interpretation: Negative Depression Screening Done: Yes 96104 - PHQ-9 Billing: Yes Source: Developed by Drs. Jm Arnold, Kirsty Morrison, Lawrence Salgado and colleagues, with an educational linda from [employer]. Thrive Questionnaire Date Thrive assessed: 06/09/25 I am a: Patient What is your living situation today?: I have a steady place to live Within the past 12 months, did the food you bought not last and you didn't have the money to get more?: Often true Within the past 12 months, did you worry whether your food would run out before you got money to buy more?: Never true Do you have trouble paying for medicines?: No Do you have trouble getting transportation to medical appointments?: No Do you have trouble paying your heating and electricity bill?: No Do you have trouble taking care of your child, family member or friend?: No Do you have trouble with day-to-day activities such as bathing, preparing meals, shopping, managing finances, etc.?: No Are you currently unemployed and looking for a job?: No Are you interested in more education?: Yes Please select the resources that you would like help with: Education Currently or been in a relationship where the following occur: No concerns reported THRIVE Score: 1 AUDIT C Alcohol Use Questionnaire (AUDIT-C) 1. How often do you have a drink containing alcohol?: Never 2. How many drinks containing alcohol do you have on a typical day when you are drinking?: 1 or 2 3. How often do you have six or more drinks on one occasion?: Never Total Score: 0 Score Reviewed/Action Taken: Yes GINA-7 AMB Questionnaire GINA-7 Date GINA - 7 assessed: 06/09/25 Feeling nervous, anxious, or on edge: 0 = Not at all Not being able to stop or control worryin = Not at all Worrying too much about different things: 0 = Not at all Trouble relaxin = Not at all Being so restless that it is hard to sit still: 0 = Not at all Becoming easily annoyed or irritable: 1 = Several days Feeling afraid as if something awful might happen: 0 = Not at all Total GINA-7 score (0-4 normal; 5-9 mild; 10-14 moderate; 15-21 severe): 1 Source: Developed by Drs. Jm Arnold, Kirsty Morrison, Lawrence Salgado and colleagues, with an educational linda from [employer]. GINA-7 Assessment Billing GINA-7 Assessment Tool: GINA-7 Assessment 29631 Review of Systems Const Denies body aches, Denies chills, Denies fever(s) and Denies poor appetite Eyes Reports no additional complaints ENT Denies dizziness Card Denies chest pain, Denies syncope, Denies lightheadedness and Denies dyspnea Resp Denies cough and Denies dyspnea GI Reports constipation (occasionally ), Denies nausea and Denies vomiting Reports no additional complaints Musc Reports no additional complaints and Denies abnormal gait Skin/Breast Reports system reviewed and no additional complaints, except as documented Neuro Denies abnormal gait, Denies dizziness and Denies syncope Psych Reports no additional complaints Physical exam (Primary Care) Vital Signs: Last Vital Signs Temp 97.4 F 06/09/25 09:53 Pulse 54 06/09/25 09:53 BP 112/64 06/09/25 09:53 Pulse Ox 99 06/09/25 09:53 Oxygen Delivery Method Room Air 06/09/25 09:53 BMI result Body Mass Index 36.5 Tobacco/Smoking Status: Tobacco use Status Tobacco use date assessed 06/09/25 06/09/25 10:02 Patient Tobacco Use Status Never used Tobacco 06/09/25 09:54 Tobacco use type Cigarette 06/09/25 09:54 e-Cigarette/Vaping Use Never Used 06/09/25 09:54 PHQ-9: PHQ-9 Score PHQ-9: Total score 1 06/09/25 10:13 Depression Screening Interpretation: Negative Thrive Assessment: Date of Thrive Assessment Date Thrive assessed 06/09/25 06/09/25 09:54 Currently or been in a relationship where the following occur: No concerns reported Const General: cooperative, healthy appearing, comfortable and no acute distress Orientation/consciousness: patient oriented x3 HENMT Head: Yes normocephalic Ears: hearing grossly normal bilaterally General nose exam: Normal external nose present Eyes General: appearance normal, both eyes and all related structures Conjunctivae: conjunctivae normal Neck Neck: Yes full ROM and Yes no lymphadenopathy Resp Effort & Inspection: normal respiratory effort Auscultation: clear to auscultation bilaterally, no crackles, no rales, no rhonchi and no wheezes Cardio Rate: regular rate Rhythm: regular rhythm Skin General skin exam: no rashes or lesions noted Neuro General: patient oriented x3 Gait exam (Neuro): Normal gait present Extrem General: Yes normal to inspection, Yes full ROM and No edema Psych Affect: normal affect Attitude: cooperative Insight: Good insight present (Psych) Judgement: Good judgement present (Psych) Coding Level of Care Code Est Pt Level 3 (52338) Diagnoses Obesity (BMI 30-39.9) E66.9 Status post laparoscopic sleeve gastrectomy Z98.84 Fatigue R53.83 Low back pain M54.50 Additional Codes GINA-7 Assessment Billing - GINA-7 Assessment Tool: GINA-7 Assessment 05369 ([id number]) PHQ-9 - 01892 - PHQ-9 Billing: Yes ([id number]) Assessment & Plan Assessment & Plan (1) Obesity (BMI 30-39.9): Code(s): E66.9 - Obesity, unspecified Category: Medical Plan: Healthy diet and regular exercise is encouraged. Discussed exercise and dietary modification as well as local programs to help with weight loss and exercise. She declines referral to nutrition and weight management today and agrees to reach out if this should change. (2) Status post laparoscopic sleeve gastrectomy: Code(s): Z98.84 - Bariatric surgery status Category: Surgical Plan: Continue with daily multivitamin. See above plan. (3) Fatigue: Code(s): R53.83 - Other fatigue Category: Medical Plan: Denies any nighttime awakenings, choking episodes, shortness of breath. Plan to obtain blood work for further evaluation and consider sleep study (4) Low back pain: Comment: Dr. Emiliano LINDSAY Code(s): M54.50 - Low back pain, unspecified Category: Medical Plan: Continue to follow up with Dr. Cummings through [facility] and continue on Gabapentin as needed for back pain. Plan The patient will have comprehensive blood work, including hormone levels and thyroid function tests, to evaluate perimenopausal symptoms and fatigue. An iron panel will be conducted to assess for anemia due to moderate menstrual bleeding with clots. She is advised to maintain a healthy diet and increase physical activity to manage weight gain post-bariatric surgery. Local resources for weight management and exercise programs, such as those at the [facility], are recommended to improve motivation and accountability. For low back pain, the patient is advised to continue using gabapentin as needed and consider physical therapy if symptoms persist. Preventative care includes staying up to date with mammograms and considering colon cancer screening with a stool test at age 46. Follow-up is planned for October to review blood work results and discuss further management as needed. This note was constructed using voice recognition software. While every effort has been made to ensure accuracy and library sales consultant, still areas may have been included sometimes these areas may affect the content or meeting of the given symptoms. Total time spent caring for the patient today was 30 minutes. This includes time spent before the visit reviewing the chart, time spent during the visit, and time spent after the visit and documentation. Patient was informed and verbally consented to the use of an ambient scribe for clinic note documentation during this visit. Orders: Orders Free T4 (Free Thyroxine) Today R53.83 - Other fatigue, Z00.00 - Encounter for general adult medical examination without abnormal findings Vitamin D 25-OH Total Today R53.83 - Other fatigue, Z00.00 - Encounter for general adult medical examination without abnormal findings Estrogen Today R53.83 - Other fatigue Hemoglobin A1c Today Z13.1 - Encounter for screening for diabetes mellitus IRON PROFILE Today R53.83 - Other fatigue Complete Blood Count Auto Diff Today R53.83 - Other fatigue, Z00.00 - Encounter for general adult medical examination without abnormal findings Comprehensive Met. Panel Today R53.83 - Other fatigue, Z00.00 - Encounter for general adult medical examination without abnormal findings TSH reflex Free T4 Today R53.83 - Other fatigue, Z00.00 - Encounter for general adult medical examination without abnormal findings Vitamin B12 and Folate Today R53.83 - Other fatigue, Z13.21 - Encounter for screening for nutritional disorder Follicle Stimulating Hormone Today R53.83 - Other fatigue Lutenizing Hormone Today R53.83 - Other fatigue Medications: Discontinued clotrimazole 1% Discontinued Reason: Patient no longer taking 1 appl topical BID 45 grams 3RF
[2025-06-09 09:53] VITALS: BP 112/64; PULSE 54; TEMP 36.3; O2SAT 99; BMI 36.5
--- OUTSIDE RECORDS SUMMARY | 2025-06-09 10:14 | XMS_ITS | Clinical Summary ---
Author Organization [facility] Address [address] [place] [id number] Phone Care Team Providers Care Retail Banking Manager Name Role Phone Chip Barbour MD Primary Care Provider [phone] Allergies No known active allergies Medications gabapentin (NEURONTIN) 300 MG capsule Take 300 mg by mouth 3 (three) times a day. Active Family History Medical History Relation Comments Diabetes Father Hypertension Father Relation Status Comments Father Alive Mother Alive Social History Tobacco Use Types Packs/Day Years Used Date Smoking Tobacco: Never Tobacco Cessation:Counseling Given: Not Answered Alcohol Use Standard Drinks/Week Comments Not Currently 0 (1 standard drink = 0.6 oz pur e alcohol) Education Answer Date Recorded Are you interested in more education? Not on charlie e 02/17/2024 Are you concerned about learning? Not on file 02/17/2024 No 02/17/2024 No 02/17/2024 Digital Access Answer Date Recorded No 02/17/2024 No 02/17/2024 Reliable internet access at home? Not on file 02/17/2024 Device with a working camera? Not on file Comments Unknown Sex and Gender Information Value Date Recorded Sex Assigned at Not on file Legal Sex Female 11:58 AM EDT Gender Identity Not on file Sexual Orientation Not on file Last Filed Vital Signs Vital Sign Reading Time Taken Comments Blood Pressure 122/73 03/11/2024 9:14 AM EDT Pulse 62 03/11/2024 9:14 AM EDT Temperature - - Respiratory Rate - - Oxygen Saturation - - Inhaled Oxygen Concentration - - Weight 95.7 kg (211 lb) 03/11/2024 9:14 AM EDT Height 168.1 cm (5' 6.2 ) 03/11/2024 9:14 AM EDT Body Mass Index 33.85 03/11/2024 9:14 AM EDT Plan of Treatment Health Maintenance Due Date Last Done Comments Adult Td,Tdap Booster 1981 DEPRESSION SCREENING 1993 HEPATITIS C SCREENING 1999 HIV ONE-TIME SCREENING (18-6 5 YEARS) 1999 PAP SMEAR 2002 SMOKING STATUS SCREENING (On ce After 26 Yrs) 2007 SCREENING FOR DIABETES 2016 MAMMOGRAM 2021 COVID-19 VACCINE (2023-2 5 season) 2024 HEPATITIS A VACCINES Aged Out No long er eligible based on patient's age to complete this topic HIB VACCINES Aged Out No longer eligi ble based on patient's age to complete this topic MENINGOCOCCAL VACCINES (ACWY) Aged Out No longer eligible based on patient's age to complete this topic MENINGOCOCCAL VACCINES (B) Aged Out N o longer eligible based on patient's age to complete this topic PNEUMOCOCCAL VACCINES (0-49 years) Aged Out No longer eligible based on patient's age to complete this topic Medical Devices [place] [id number] [employer] [place] Boosted [place]ards [place] [facility] [facility] [place] [id number] [facility] [employer]ed Boards Care Teams Retail Banking Manager Relationship Specialty Start Date End Date Chip Barbour MD [address] [place] [address] [place] [address] PCP - General Internal Medicine 02/17/24 Additional Source Comments The information contained in this document represents components of the legal health record. It is not the complete legal health record.[facility]
--- OUTSIDE RECORDS SUMMARY | 2025-06-09 10:14 | XMS_ITS | Clinical Summary ---
Author Organization [facility] Address [address] [place] [id number] Care Team Providers Care Farm Operations Manager Name Role Phone hCip Barbour Primary Care Provider [phone] Allergies No known active allergies Medications vitamin A 10,000 unit capsule Take 10,000 Units by mouth in the morning. 3 Active sulindac (CLINORIL) 150 mg tablet Take 150 mg by mouth in the morning and 150 mg before bedtime. 3 Active gabapentin (NEURONTIN) 300 mg capsule 1 capsule in the morning. Active lidocaine (XYLOCAINE) 5 % ointment Apply topically as needed for mild pain (1-3). 35.44 g 5 12/24/19 26 Active Active Problems No known active problems Encounters Date Type Department Care Team Description 03/11/2025 8:00 AM EDT Scheduled Telephone Visit [facility] Department of Podiatry [address] [place] [phone] Gisela Christie DPM from Last 3 Months Social History Tobacco Use Types Packs/Day Years Used Date Smoking Tobacco: Never Smokeless Tobacco: Never Tobacco Cessation:Counseling Given: Not Answered Comments Unknown Sex and Gender Information Value Date Recorded Sex Assigned at Not on file Legal Sex Female 6:47 AM EDT Gender Identity Not on file Sexual Orientation Not on file Last Filed Vital Signs Vital Sign Reading Time Taken Comments Blood Pressure - - Pulse - - Temperature - - Respiratory Rate - - Oxygen Saturation - - Inhaled Oxygen Concentration - - Weight 90.7 kg (200 lb) 08/06/2023 8:08 AM EDT Height 172.7 cm (5' 8 ) 08/06/2023 8:08 AM EDT Body Mass Index 30.41 08/06/2023 8:08 AM EDT Plan of Treatment Health Maintenance Due Date Last Done Comments Breast Cancer Screening 1981 HIV Screening 1981 DTaP,Tdap,and Td Vaccines (1 - Tdap) 1999 Hepatitis C Screening 1999 Hepatitis B Vaccines (1 of 3 - 19+ 3-dose series) 2000 Pap Smear 2002 Cervical Cancer Screening 2011 HPV/Cotest 2011 COVID-19 Vaccine ( - 2023-2 5 season) 2024 Influenza Vaccine (#1) 2025 , 08/18/2023 Zoster Vaccines (1 of 2) 2031 HPV Vaccines Aged Out No longer eligi ble based on patient's age to complete this topic Hepatitis A Vaccines Aged Out No long er eligible based on patient's age to complete this topic MMR Vaccines Aged Out No longer eligi ble based on patient's age to complete this topic Meningococcal Vaccine Aged Out No opal [place] eligible based on patient's age to complete this topic Pneumococcal Vaccine: Pediatrics (0 to 5 Years) and At-Risk Patients (6 to 49 Years) Aged Out No longer eligible b ased on patient's age to complete this topic Insurance COMM[employer]CIAL GENERIC [place] [employer] [id number] Care Teams Farm Operations Manager Relationship Specialty Start Date End Date Chip Barbour [address] [place] [address] PCP - General Internal Medicine 07/31/23
--- OUTSIDE RECORDS SUMMARY | 2025-06-09 10:14 | XMS_ITS ---
Author Name [facility] Organization Unknown History of Medication Use Medication Directions Dispensed Refills Start Date End Date Stat lidocaine (XYLOCAINE) 5 % ointment Apply topically as needed for mild pain (1-3). 12/24/2024 active gabapentin (NEURONTIN) 300 mg capsule 1 capsule in the morning. active Encounters Encounter Type Encounter Reason Primary Diagnosis Location Date Ambulatory Unspecified synoviti s and tenosynovitis, Unspecified synovitis and tenosynovitis, unspecified lower leg [facility] 02/18/2025 Ambulatory [facility] 01/28/2025 Ambulatory Unspecified synoviti s and tenosynovitis, Unspecified synovitis and tenosynovitis, unspecified lower leg [facility] 12/24/2024 Ambulatory Pain in left foot Pain in left foot [facility] 09/03/2024 Ambulatory Pain in left foot Pain in left foot [facility] 09/03/2024 Ambulatory Back Pain Back Pain [facility] 08/06/2023 Ambulatory [facility] 07/31/2023 Care Team Organization Name Specialty Phone Email Start Date End Da te [facility] 11/30/2023 [facility] Primary Care 11/30/2023 [facility] Primary Care 07/31/20 23 07/31/2023
== END 2025-06-09 10:35 | disposition home or self-care (01) ==
LOC: HO.HMCH 09:45
DX: R53.83 Other fatigue (principal); E66.9 Obesity, unspecified; Z68.36 Body mass index [BMI] 36.0-36.9, adult; Z98.84 Bariatric surgery status; M54.50 Low back pain, unspecified

== ENCOUNTER → 2025-06-09 09:44 | Outpatient (BNVA) | payer OTHER, SELFPAY | DX: I10 Essential (primary) hypertension (principal); E66.9 Obesity, unspecified; R53.83 Other fatigue; Z68.36 Body mass index [BMI] 36.0-36.9, adult | CPT/HCPCS: 96127 ==

== ENCOUNTER 2025-06-30 08:12 | Outpatient (REF) | payer OTHER, SELFPAY ==
[2025-06-30 08:34] LABS: MANUAL DIFF FLAG NO
[2025-06-30 08:44] LABS: Hematocrit 36.0 % (37.0-47.0); Hemoglobin 12.1 g/dl (12.0-16.0); Imm Gran Abs Auto 0.01 X10*3/uL (0.00-0.03); Imm Gran Pct Auto 0.2 % (0.0-0.4); Lymphocytes Absolute Auto 1.6 X10*3/uL (1.2-4.9); Mean Corpuscular HGB Conc 33.6 g/dl (31.0-35.0); Mean Corpuscular Hemoglobin 28.2 pg (27.0-33.0); Mean Corpuscular Volume 83.9 fL (80.0-98.0); NRBC Abs Auto 0.000 X10*3/uL (0.0-0.012); NRBC Pct Auto 0.0 /100WBC (0.0-0.2); Platelet Count 213 X10*3/uL (160-400); Red Blood Count 4.29 X10*6/uL (4.20-5.50); White Blood Count 6.0 X10*3/uL (4.8-10.8)
[2025-06-30 09:06] LABS: Hemoglobin A1C 110.0901 umol/L; Total Hemoglobin (HGBA1C) 3249.3126 umol/L
[2025-06-30 09:23] LABS: Alanine Aminotransferase 26 U/L (0-31); Albumin Level 4.0 g/dL (3.5-5.0); Alkaline Phosphatase 52 U/L (39-117); Anion Gap 10 (12-20); Aspartate Amino Transferase 26 U/L (5-31); Blood Urea Nitrogen 13 mg/dL (9-16); Calcium 8.8 mg/dL (8.4-10.2); Carbon Dioxide 27 mmol/L (22-29); Chloride 106 mmol/L (96-108); Estimated Glomerular Filt Rate > 60; Iron 89 mcg/dL (30-160); Percent Iron Saturation 36 % (15-50); Potassium 4.1 mmol/L (3.3-5.1); Sodium 139 mmol/L (135-145); Total Iron Binding Capacity 245 mcg/dL (228-428); Total Protein 6.6 g/dL (6.5-8.0); Unsaturated Iron Binding 156 ug/dL
[2025-06-30 09:29] LABS: Free T4 (Free Thyroxine) 0.92 ng/dL (0.71-1.85)
[2025-06-30 09:40] LABS: Folate 14.3 ng/mL (> or = 4.0); Vitamin B12 1037 pg/mL (200-900)
[2025-07-01 06:33] LABS: Follicle Stimulating Hormone 4.8 mIU/mL
== END 2025-06-30 08:13 | disposition home or self-care (01) ==
LOC: HO.LAB 08:12
PROVIDERS: PCP Internal Medicine
DX: Z00.00 Encounter for general adult medical examination without abnormal findings (principal); R53.83 Other fatigue; Z13.21 Encounter for screening for nutritional disorder; Z13.1 Encounter for screening for diabetes mellitus
CPT/HCPCS: 36415; 80053; 82306; 82607; 82672; 82746; 83001; 83002; 83036; 83540; 84439; 84443; 85025

== ENCOUNTER 2025-07-15 10:40 | Outpatient (AMB) | payer OTHER, SELFPAY ==
--- NOTE | 2025-07-15 10:34 | A.OFFVIS_ITS ---
VS Expanded 07/15/25 10:43 Height 5 ft 7 in Weight 230 lb BMI 36.0 Intake Visit Reasons: TV PO LSG 08/01/21 Allergies Seasonal Allergies Allergy (Intermediate, Verified 06/09/25 10:05) red eye, itching eye, watery eyes, apple (Apple) Allergy (Mild, Verified 06/09/25 10:05) THROAT ITCHING stephens Allergy (Mild, Verified 06/09/25 10:05) THROAT ITCHING pear (Pear) Allergy (Mild, Verified 06/09/25 10:05) THROAT ITCHING Medication List - Last Reconciled 07/15/25 by ADILENE Celis calcium citrate 1,000 mg PO BID cholecalciferol (vitamin D3) 125 mcg PO DAILY gabapentin 300 mg PO BEDTIME unuqudyqokkq-qfd-eusn-FA-vit K 45 mg iron- 800 mcg-120 mcg (Bariatric Multivitamins) caps PO psyllium husk (Daily Fiber) 0.52 grams PO BEDTIME HPI Comments Details: This?is a?44?yo F who is s/p LSG 08/01/2021. Presents for 3y post op visit. Weight at last visit on 09/07/2024 was 202lbs. Weight today is 230 pounds, representing a 28 pound weight loss with a BMI today of 36.? No complaints of nausea, emesis, abdominal pain or reflux, or constipation. Pt wonders if she is starting perimenopause- struggling with constant fatigue. She had labs done by PCP, no notable deficiencies. Present meal plan includes: 2 PP bars, 1 shake with 1 scoop Premier, 1 25g yogurt, or 1 PP bar, 1 shake with 1 scoop, 1 shake with 1.5 scoops, 1 yogurt Exercise routine includes: has completely stopped exercise Pt reports ongoing problems of excess skin of abdomen, causing itchy painful rashes in skin fold. She also notices that moisture collects in the skin fold. Very uncomfortable during exercise, impedes movement and unable to exercise to her full capacity or sometimes even walk regularly without discomfort. Has tried clotrimazole ointment to help rashes but this has not resolved the issue. Pt also reports ongoing rashes of excess skin of upper arms. She has developed an itchy rash under both arms particularly when she sweats, such as when exercising at the gym or in hot weather. She has tried some powder/cream and always tries to keep dry, but this has not helped. She notices difficulty with walking, as her arms move and cause increased friction. [facility] Medical History Morbid obesity due to excess calories Obesity COVID-19 vaccine series completed History of COVID-19 Degenerative disc disease, lumbar Back pain Surgical History History of repair of hiatal hernia Status post laparoscopic sleeve gastrectomy History of tonsillectomy Hx of cervical polypectomy H/O tubal ligation History of cholecystectomy Family History Father No problems noted. Mother No problems noted. Sister No problems noted. Son No problems noted. Son No problems noted. Son No problems noted. Social History Housing: Apartment Are you a primary post acute care nurse to a significant other at home: Yes (children) Do you presently have visiting nurse or other home services: No Alcohol intake: current Alcohol intake frequency: holidays/special occasions only Comment: feels like gas Patient Tobacco Use Status: Never used Tobacco Tobacco use type: Cigarette e-Cigarette/Vaping Use: Never Used Second Hand Smoke Exposure: No service: No Current occupational status: employed Cognitive needs: No Hearing needs: No Vision needs: Yes Telehealth Telehealth Telehealth Platform: Telephone Location of provider rendering services: practice address Location of patient: address on file Patient Identification confirmed using: Name, : Yes Telehealth method: voice only Patient verbally consented to treatment: Yes Patient verbally consented to billing insurance company: Yes Patient informed of any privacy concerns related to visit: Yes Minutes spent on Phone/Video with Pt.: 16 Assessment & Plan Assessment & Plan (1) Obesity (BMI 30-39.9): Code(s): E66.9 - Obesity, unspecified Category: Medical (2) Status post laparoscopic sleeve gastrectomy: Code(s): Z98.84 - Bariatric surgery status Category: Surgical Plan Pt willing to trial phentermine for 3 mo. She is interested in GLP1s if this is ineffective. Discussed risks and benefits of phentermine. She will take her blood pressure daily prior to taking phentermine. She will text me measurements as well as weight weekly. She plans to increase exercise once her energy improves. RTC 3mo phone visit. Medications: New phentermine must administer 2 hours after breakfast 30 mg PO DAILY 30 caps 0RF
[2025-07-15 10:43] VITALS: BMI 36.0
--- OUTSIDE RECORDS SUMMARY | 2025-07-15 11:39 | XMS_ITS | Clinical Summary ---
Author Organization [facility] Address [address] [place] [id number] Care Team Providers Care Radiologic Technologist Name Role Phone Chip Barbour Primary Care Provider [phone] Allergies No known active allergies Medications vitamin [...] Active Active Problems No known active problems Social History Tobacco Use Types Packs/Day Years [...] Cancer Screening 2011 HPV/Cotest 2011 COVID-19 Vaccine (1 - 4-2 5 season) 2025 Influenza Vaccine (#1) 2025 4, 08/18/2023 Zoster Vaccines (1 of 2) 2031 [...] this topic Insurance [employer] [place] [employer] [id number] Care Teams Radiologic Technologist Relationship Specialty Start Date End Date Chip Barbour [address] [place] [address] PCP - General Internal Medicine 07/31/23
--- OUTSIDE RECORDS SUMMARY | 2025-07-15 11:39 | XMS_ITS | Clinical Summary ---
Author Organization [facility] Address [address] [place] [address] Phone Care Team Providers Care Blood And Plasma Laboratory Assistant Name Role Phone Chip Barbour MD Primary Care Provider [phone] Allergies No known active allergies Medications gabapentin [...] [place] [id number] [employer] [place] [employer] [place] [employer] [facility] [employer] [place] [id number] [facility] [employer] Care Teams Blood And Plasma Laboratory Assistant Relationship Specialty Start Date End Date Chip Barbour MD [address] [place] [address] [place] [address] PCP - General Internal Medicine 02/17/24 Additional Source Comments The information contained in this document represents components of the legal health record. It is not the complete legal health record.[facility]
== END 2025-07-15 10:59 | disposition home or self-care (01) ==
LOC: HO.HBS 10:40
PROVIDERS: PCP Internal Medicine; Visit Provider Physician Assistant Surgical
DX: E66.9 Obesity, unspecified (principal); Z68.36 Body mass index [BMI] 36.0-36.9, adult; Z90.3 Acquired absence of stomach [part of]; Z98.84 Bariatric surgery status
CPT/HCPCS: 99213; G2211

== ENCOUNTER → 2025-07-15 10:40 | Outpatient (BNVA) | payer OTHER, SELFPAY | PROVIDERS: PCP Internal Medicine; Visit Provider Physician Assistant Surgical | DX: E66.9 Obesity, unspecified (principal); Z68.36 Body mass index [BMI] 36.0-36.9, adult; Z98.84 Bariatric surgery status; Z13.89 Encounter for screening for other disorder ==

== ENCOUNTER 2025-10-17 10:28 | Outpatient (AMB) | payer OTHER, SELFPAY ==
--- NOTE | 2025-10-17 10:15 | MHC.OFFVISWM ---
VS Expanded 10/17/25 10:18 Height 5 ft 7 in Weight 220 lb BMI 34.5 Intake Visit Reasons: Phone PO LSG 08/01/21 Allergies Seasonal Allergies Allergy (Intermediate, Verified 06/09/25 10:05) red eye, itching eye, watery eyes, apple (Apple) Allergy (Mild, Verified 06/09/25 10:05) THROAT ITCHING stephens Allergy (Mild, Verified 06/09/25 10:05) THROAT ITCHING pear (Pear) Allergy (Mild, Verified 06/09/25 10:05) THROAT ITCHING Medication List - Last Reconciled 10/17/25 by ADILENE Celis calcium citrate 1,000 mg PO BID cholecalciferol (vitamin D3) 125 mcg PO DAILY clotrimazole 1% 1 appl topical BID gabapentin 300 mg PO BEDTIME qdmoaofdlooc-jjr-jlhk-FA-vit K 45 mg iron- 800 mcg-120 mcg (Bariatric Multivitamins) caps PO phentermine 37.5 mg PO DAILY psyllium husk (Daily Fiber) 0.52 grams PO BEDTIME HPI Comments Details: This is a 44 yo F who is s/p LSG 08/01/2021. Presents for 3y 3mo post op visit. Weight at last visit on 09/07/2024 was 230lbs. Weight today is 220 pounds, representing a 10 pound weight loss with a BMI today of 34.5. No complaints of nausea, emesis, abdominal pain or reflux, or constipation. Pt has been on phentermine and does feel some appetite suppression. No issues with BP control- has not had to skip any days of dosing. Present meal plan includes: 2 PP bars, 1 shake with 1 scoop Premier, 1 25g yogurt, or 1 PP bar, 1 shake with 1 scoop, 1 shake with 1.5 scoops, 1 yogurt Exercise routine includes: has completely stopped exercise- only has enough energy to get through workday, not exercise Pt reports ongoing problems of excess skin of abdomen, causing itchy painful rashes in skin fold. She also notices that moisture collects in the skin fold. Very uncomfortable during exercise, impedes movement and unable to exercise to her full capacity or sometimes even walk regularly without discomfort. Has tried clotrimazole ointment to help rashes but this has not resolved the issue. Pt also reports ongoing rashes of excess skin of upper arms. She has developed an itchy rash under both arms particularly when she sweats, such as when exercising at the gym or in hot weather. She has tried some powder/cream and always tries to keep dry, but this has not helped. She notices difficulty with walking, as her arms move and cause increased friction. [facility] Medical History Morbid obesity due to excess calories Obesity COVID-19 vaccine series completed History of COVID-19 Degenerative disc disease, lumbar Back pain Surgical History History of repair of hiatal hernia Status post laparoscopic sleeve gastrectomy History of tonsillectomy Hx of cervical polypectomy H/O tubal ligation History of cholecystectomy Family History Father No problems noted. Mother No problems noted. Sister No problems noted. Son No problems noted. Son No problems noted. Son No problems noted. Social History Housing: Apartment Are you a primary home care giver to a significant other at home: Yes (children) Do you presently have visiting nurse or other home services: No Alcohol intake: current Alcohol intake frequency: holidays/special occasions only Comment: feels like gas Patient Tobacco Use Status: Never used Tobacco Tobacco use type: Cigarette e-Cigarette/Vaping Use: Never Used Second Hand Smoke Exposure: No service: No Current occupational status: employed Cognitive needs: No Hearing needs: No Vision needs: Yes Physical Exam Vital Signs: BMI result Body Mass Index 34.5 Telehealth Telehealth Telehealth Platform: Telephone Location of provider rendering services: practice address Location of patient: address on file Patient Identification confirmed using: Name, : Yes Telehealth method: voice only Patient verbally consented to treatment: Yes Patient verbally consented to billing insurance company: Yes Patient informed of any privacy concerns related to visit: Yes Minutes spent on Phone/Video with Pt.: 15 Assessment & Plan Assessment & Plan (1) Status post laparoscopic sleeve gastrectomy: Code(s): Z98.84 - Bariatric surgery status Category: Surgical (2) Obesity (BMI 30-39.9): Code(s): E66.9 - Obesity, unspecified Category: Medical Plan Pt to continue 1 additional month of phentermine. I asked her to contact her insurance company to ask whether they are continuing to offer weight loss medications as a covered benefit next year and she says she will do so. She may be interested in starting GLP1 next month. RTC 3-4mo. Medications: Refilled phentermine must administer 30 minutes before or 1-2 hours after breakfast 37.5 mg PO DAILY 30 caps 0RF
[2025-10-17 10:18] VITALS: BMI 34.5
== END 2025-10-17 10:34 | disposition home or self-care (01) ==
LOC: HO.HBS 10:28
PROVIDERS: PCP Internal Medicine; Visit Provider Physician Assistant Surgical
DX: E66.811 Obesity, class 1 (principal); Z68.34 Body mass index [BMI] 34.0-34.9, adult; Z90.3 Acquired absence of stomach [part of]; Z98.84 Bariatric surgery status
CPT/HCPCS: 99213; G2211

== ENCOUNTER 2025-11-09 08:17 | Outpatient (AMB) | payer OTHER, SELFPAY ==
[2025-11-09 08:22] VITALS: BP 114/70; PULSE 86; RESP 18; TEMP 36.4; O2SAT 99; BMI 36.6
--- NOTE | 2025-11-09 08:22 | A.OFFPC_ITS ---
Vital Signs 11/09/25 08:22 Height 5 ft 7 in Weight 234 lb BMI 36.6 BP 114/70 Blood Pressure Location Lt brachial Position Sitting Respiration 18 Pulse 86 Pulse Source Pulse Oximeter Temp 97.5 F Temp Source Temporal Artery Scan Pulse Oximetry (%) 99 Oxygen Delivery Method Room Air Intake Visit Reasons: Annual Exam Hand Mold Maker Required: No Accompanied by: Self / Same As Patient Allergies Seasonal Allergies Allergy (Intermediate, Verified 11/09/25 08:41) red eye, itching eye, watery eyes, apple (Apple) Allergy (Mild, Verified 11/09/25 08:41) THROAT ITCHING stephens Allergy (Mild, Verified 11/09/25 08:41) THROAT ITCHING pear (Pear) Allergy (Mild, Verified 11/09/25 08:41) THROAT ITCHING Medication List - Last Reconciled 11/09/25 by Hoa Pruitt PA-C calcium citrate 1,000 mg PO BID cholecalciferol (vitamin D3) 125 mcg PO DAILY clotrimazole 1% 1 appl topical BID gabapentin 300 mg PO BEDTIME atkgyhoadxtu-bzw-vmxe-FA-vit K 45 mg iron- 800 mcg-120 mcg (Bariatric Multivitamins) caps PO phentermine 37.5 mg PO DAILY psyllium husk (Daily Fiber) 0.52 grams PO BEDTIME Tobacco use date assessed: 06/09/25 Dental Screening Dental Screen Date: 06/09/25 HPI Annual Exam HPI Details 44-year-old female with past medical his tory of adjustment disorder, obesity last seen 05/2025 coming in for annual exam. In review of the notes, patient was seen by weight management 10/2025 continue on phentermine for one month and consider GLP-1 at next visit. Presenting for a follow-up visit for weight management and chronic condition management. She is currently being seen for weight management and is taking phentermine, which she tolerates well aside from some constipation that is managed with fiber. She has noticed her clothes are looser but does not track her weight at home. She is considering GLP-1 agonists and plans to inquire about insurance coverage. The patient reports persistent fatigue and sleep disturbance due to intermittent nocturnal hot flushes, which she believes are perimenopausal symptoms, although her academic coordinator disagrees. She has not had sleep study completed and is not interested in this at this time. mammo: yearly with [facility] pap smear: Total [facility] vaccines: UTD flu and TD PFSH Medical History Morbid obesity due to excess calories Obesity COVID-19 vaccine series completed History of COVID-19 Degenerative disc disease, lumbar Back pain Surgical History History of repair of hiatal hernia Status post laparoscopic sleeve gastrectomy History of tonsillectomy Hx of cervical polypectomy H/O tubal ligation History of cholecystectomy Family History Father No problems noted. Mother No problems noted. Sister No problems noted. Son No problems noted. Son No problems noted. Son No problems noted. Social History Housing: Apartment Are you a primary senior care specialist to a significant other at home: Yes (children) Do you presently have visiting nurse or other home services: No Alcohol intake: current Alcohol intake frequency: holidays/special occasions only Comment: feels like gas Patient Tobacco Use Status: Never used Tobacco Tobacco use type: Cigarette e-Cigarette/Vaping Use: Never Used Second Hand Smoke Exposure: No service: No Current occupational status: employed Cognitive needs: No Hearing needs: No Vision needs: Yes Questionnaire PHQ-9 Over the last 2 weeks, how often have you been bothered by any of the following problems? 1. Little interest or pleasure in doing things: not at all 2. Feeling down, depressed, or hopeless: not at all 3. Trouble falling or staying asleep, or sleeping too much: not at all 4. Feeling tired or having little energy: several days 5. Poor appetite or overeating: not at all 6. Feeling bad about yourself - or that you are a failure or have let yourself or your family down: not at all 7. Trouble concentrating on things, such as reading the newspaper or watching television: not at all 8. Moving or speaking so slowly that other people could have noticed. Or the opposite - being so fidgety or restless that you have been moving around a lot more than usual: not at all 9. Thoughts that you would be better off or of hurting yourself in some way: not at all Total score: 1 Depression Screening Interpretation: Negative Depression Screening Done: Yes Source: Developed by Drs. Jm Arnold, Kirsty Morrison, Lawrence Salgado and colleagues, with an educational linda from [employer]. Thrive Questionnaire Date Thrive assessed: 06/02/25 I am a: Patient What is your living situation today?: I have a steady place to live Within the past 12 months, did the food you bought not last and you didn't have the money to get more?: Often true Within the past 12 months, did you worry whether your food would run out before you got money to buy more?: Never true Do you have trouble paying for medicines?: No Do you have trouble getting transportation to medical appointments?: No Do you have trouble paying your heating and electricity bill?: No Do you have trouble taking care of your child, family member or friend?: No Do you have trouble with day-to-day activities such as bathing, preparing meals, shopping, managing finances, etc.?: No Are you currently unemployed and looking for a job?: No Are you interested in more education?: Yes Currently or been in a relationship where the following occur: No concerns reported THRIVE Score: 1 GINA-7 AMB Questionnaire GINA-7 Date GINA - 7 assessed: 06/09/25 Feeling nervous, anxious, or on edge: 0 = Not at all Not being able to stop or control worryin = Not at all Worrying too much about different things: 0 = Not at all Trouble relaxin = Not at all Being so restless that it is hard to sit still: 0 = Not at all Becoming easily annoyed or irritable: 1 = Several days Feeling afraid as if something awful might happen: 0 = Not at all Total GINA-7 score (0-4 normal; 5-9 mild; 10-14 moderate; 15-21 severe): 1 Source: Developed by Drs. Jm Arnold, Kirsty Morrison, Lawrence Salgado and colleagues, with an educational linda from [employer]. Review of Systems Const Denies body aches, Denies chills, Denies fever(s), Reports headache(s) (stress related ), Reports lethargy and Denies poor appetite Eyes Reports no additional complaints ENT Denies dysphagia, Denies dizziness, Reports headache(s) (stress related ) and Denies odynophagia Card Denies chest pain, Denies syncope, Denies edema, Denies irregular heart rhythm, Denies lightheadedness and Denies dyspnea Resp Denies cough and Denies dyspnea GI Denies abdominal pain, Reports constipation, Denies dysphagia, Denies diarrhea, Denies nausea, Denies odynophagia and Denies vomiting Denies dysuria, Denies urinary hesitancy and Denies urinary urgency Musc Reports no additional complaints and Denies abnormal gait Skin/Breast Reports system reviewed and no additional complaints, except as documented Neuro Denies abnormal gait, Denies dizziness, Denies syncope and Reports headache(s) (stress related ) Psych Reports no additional complaints Physical exam (Primary Care) Vital Signs: Last Vital Signs Temp 97.5 F 11/09/25 08:22 Pulse 86 11/09/25 08:22 Resp 18 11/09/25 08:22 BP 114/70 11/09/25 08:22 Pulse Ox 99 11/09/25 08:22 Oxygen Delivery Method Room Air 11/09/25 08:22 BMI result Body Mass Index 36.6 Tobacco/Smoking Status: Tobacco use Status Tobacco use date assessed 06/09/25 11/09/25 08:28 Patient Tobacco Use Status Never used Tobacco 11/09/25 08:28 Tobacco use type Cigarette 11/09/25 08:28 e-Cigarette/Vaping Use Never Used 11/09/25 08:28 Depression Screening Interpretation: Negative Thrive Assessment: Date of Thrive Assessment Date Thrive assessed 06/02/25 11/09/25 08:28 Currently or been in a relationship where the following occur: No concerns reported Const General: cooperative, healthy appearing, comfortable and no acute distress Orientation/consciousness: patient oriented x3 HENMT Head: Yes normocephalic Ears: hearing grossly normal bilaterally, external ears normal, TM's normal bilaterally and EAC's normal General nose exam: Normal external nose present Face and sinus: Yes normal facial exam and Yes sinuses nontender Mouth: Normal oral and palatal mucosa present and tongue normal Throat: Yes posterior oropharynx normal Eyes General: appearance normal, both eyes and all related structures Conjunctivae: conjunctivae normal Pupils: Equal, round and reactive pupils present EOM: EOMs intact bilaterally and No Nystagmus present Neck Neck: Yes normal visual inspection, Yes full ROM and Yes no lymphadenopathy Chest Chest palpation & inspection: normal inspection of the chest Resp Effort & Inspection: normal respiratory effort Auscultation: clear to auscultation bilaterally, no crackles, no rales, no rhonchi, no wheezes and breath sounds present Cardio Rate: regular rate Rhythm: regular rhythm Peripheral pulses: radial pulses present and dorsalis pedis present GI Inspection: Yes normal to inspection and No Abdominal wall edema Palpation (GI): Soft to palpation, not firm and nontender Auscultation: normal bowel sounds Rectal Exam - Female: deferred General: Yes no CVA tenderness Back/Spine/Pelvis Back: no CVA tenderness Skin General skin exam: no rashes or lesions noted Neuro General: patient oriented x3 Cranial nerves: Yes Equal, round and reactive pupils present, Yes Midline tongue present, Yes Ability to bilaterally elevate shoulders present and No Nystagmus present Gait exam (Neuro): Normal gait present Extrem General: Yes normal to inspection, Yes full ROM, No no pedal edema and No edema Psych Speech and movement: Normal speech and movement present Affect: normal affect Insight: Good insight present (Psych) Judgement: Good judgement present (Psych) Coding Level of Care Code Est Pt Prev Care 40-64y(43703) Diagnoses Physical exam Z00.00 Obesity (BMI 30-39.9) E66.9 Status post laparoscopic sleeve gastrectomy Z98.84 Fatigue R53.83 Low back pain M54.50 Assessment & Plan Assessment & Plan (1) Physical exam: Code(s): Z00.00 - Encounter for general adult medical examination without abnormal findings Category: Medical Plan: Patient is up to date on all recommended routine screenings and vaccinations for her age. Her blood work is up to date and has been reviewed with the patient today. Healthy diet and regular exercise is encouraged. Plan to follow up yearly or sooner as needed. (2) Obesity (BMI 30-39.9): Code(s): E66.9 - Obesity, unspecified Category: Medical Plan: Healthy diet and regular exercise is encouraged. She will continue on Phentermine and continue to follow with weight management. (3) Status post laparoscopic sleeve gastrectomy: Code(s): Z98.84 - Bariatric surgery status Category: Surgical Plan: Continue with daily multivitamin. See above plan. (4) Fatigue: Code(s): R53.83 - Other fatigue Category: Medical Plan: The patient reports sleep disturbance secondary to random and occasional nocturnal hot flushes, though her recent hormone labs were within normal ranges. She declined a sleep study at this time. It was recommended that she try taking magnesium, which may help with perimenopausal symptoms, sleep, and also act as a gentle laxative. She will continue to follow up with her academic coordinator for these symptoms. (5) Low back pain: Comment: Dr. Emiliano LINDSAY Code(s): M54.50 - Low back pain, unspecified Category: Medical Plan: Continue to follow up with Dr. Cummings through [facility] and continue on Gabapentin as needed for back pain. Plan This note was constructed using voice recognition software. While every effort has been made to ensure accuracy and hand striper, still areas may have been included sometimes these areas may affect the content or meeting of the given symptoms. Total time spent caring for the patient today was 30 minutes. This includes time spent before the visit reviewing the chart, time spent during the visit, and time spent after the visit and documentation. Patient was informed and verbally consented to the use of an ambient scribe for clinic note documentation during this visit. Orders: Orders UA CC w/rflx Micro + Cult Today Z13.9 - Encounter for screening, unspecified Lipid Panel Today Z13.220 - Encounter for screening for lipoid disorders
--- OUTSIDE RECORDS SUMMARY | 2025-11-09 08:22 | XMS_ITS | Clinical Summary ---
Author Organization [facility] Address [address] [place] [id number] Care Team Providers Care Fitter Hand Name Role Phone Chip Barbour Primary Care Provider [phone] Allergies No known active allergies Medications vitamin [...] 19+ 3-dose series) 2000 Pap Smear 2002 HPV Vaccines (1 - 3-dose SCD M series) 2008 Cervical Cancer Screening 2011 HPV/Cotest 2011 COVID-19 Vaccine (1 - 2024-2 6 season) 2025 Influenza Vaccine (#1) 2025 4, 08/18/2023 Zoster Vaccines (1 of 2) 2031 Hepatitis A Vaccines Aged Out No long er eligible based on patient's age to complete this topic MMR Vaccines Aged Out No longer eligi ble based on patient's age to complete this topic Meningococcal Vaccine Aged Out No opal [place] eligible based on patient's age to complete this topic Pneumococcal Vaccine: At-Ris k and Pediatric Patients (0 to 49 Years) Aged Out No longer eligible b ased on patient's age to complete this topic Insurance [employer] [place] [id number] Care Teams Fitter Hand Relationship Specialty Start Date End Date Chip Barbour [address] [place] [address] PCP - General Internal Medicine 07/31/23
--- OUTSIDE RECORDS SUMMARY | 2025-11-09 08:22 | XMS_ITS | Clinical Summary ---
Author Organization 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 [place] [id number] [place] [id number] [facility] [employer] Care Teams Auto Glass Installer Relationship Specialty Start Date End Date Chip Barbour MD [address] [place] [address] [place] [id number] PCP - General Internal Medicine 02/17/24 Additional Source Comments The information contained in this document represents components of the legal health record. It is not the complete legal health record.[facility]
== END 2025-11-09 09:02 | disposition home or self-care (01) ==
LOC: HO.HMCH 08:18
DX: Z00.00 Encounter for general adult medical examination without abnormal findings (principal); E66.9 Obesity, unspecified; Z98.84 Bariatric surgery status; R53.83 Other fatigue; M54.50 Low back pain, unspecified